=== PATIENT | male | born 1950 | race African-American/Black ===

== ENCOUNTER → 2019-04-22 | Outpatient (CLI) | payer OTHER | LOC: YHH 15:03 ==

== ENCOUNTER 2023-06-05 07:44 | Day surgery (SDC) | payer OTHER ==
[2023-06-03 09:45] VITALS: BMI 25.5
[2023-06-05 09:36] LABS: INR 1.17 (0.83-1.09); PROTHROMBIN TIME (PATIENT) 13.5 SEC (9.7-13.0)
[2023-06-05] MEDS ORDERED: FENTANYL CITRATE/PF 50 MCG/ML VIAL ONE ×2 (14:20)
[2023-06-05] MEDS ORDERED: MIDAZOLAM HCL 2 MG/2 ML SINGLE DOSE VIAL ONE (14:20)
[2023-06-05] MEDS ORDERED: SODIUM CHLORIDE 500 ML IV SCH (14:50)
[2023-06-05] MEDS ORDERED: FENTANYL CITRATE/PF 50 MCG/ML VIAL IVPUSH ONE ×2 (15:05→15:28)
[2023-06-05] MEDS ORDERED: MIDAZOLAM HCL 2 MG/2 ML SINGLE DOSE VIAL IVPUSH ONE ×2 (15:06→15:28)
[2023-06-05 16:22] VITALS: RESP 20
[2023-06-05 17:51] VITALS: BP 118/65; PULSE 101; TEMP 98
== END 2023-06-05 17:30 | disposition home or self-care (01) ==
LOC: JRADIR 07:44
PROVIDERS: ATTEND Student in an Organized Health Care Education/Training Program
PROC: 0QBS3ZX Excision of Coccyx, Percutaneous Approach, Diagnostic (ICD-10-PCS; principal; 2023-06-05)
DX: C16.9 Malignant neoplasm of stomach, unspecified (principal); C61 Malignant neoplasm of prostate; C79.51 Secondary malignant neoplasm of bone
CPT/HCPCS: 20225; 36415; 77012-TC; 85610; 88305-TC; 88311-TC

== ENCOUNTER 2023-07-09 10:42 | Inpatient (IN) | payer OTHER ==
[2023-07-09] MEDS ORDERED: ALBUTEROL SO4 2.5/IPRATROPIUM 0.5 INH SOL 3 ML VIAL.NEB. NEB ONE ×6 (11:12→20:27)
[2023-07-09 11:44] LABS: BASO % 0.5 % (0-2.0); EOS % 1.3 % (0-4.5); HEMATOCRIT 38.6 % (35.4-49); HEMOGLOBIN 12.3 GM/dL (11.7-16.9); LYMPH % 19.1 % (8-40); MCH 28.2 pg (25.7-33.7); MCHC 31.8 g/dl (32.0-35.9); MEAN CELL VOLUME 88.6 fl (80-96); MEAN PLT VOLUME 8.6 fl (7.5-11.1); MONO % 9.6 % (3.8-10.2); NEUT % 69.5 % (42.8-82.8); PLATELET COUNT 149 10^3/uL (134-434); RBC 4.36 M/mm3 (4.00-5.60); RDW 14.3 % (11.9-15.9); WHITE BLOOD COUNT 6.4 K/mm3 (4.0-10.0)
[2023-07-09 12:03] LABS: CALCIUM 9.1 mg/dL (8.5-10.1)
[2023-07-09 12:04] LABS: BLOOD UREA NITROGEN 16.5 mg/dL (7-18)
[2023-07-09 12:07] LABS: CREATININE 1.2 mg/dL (0.55-1.3)
[2023-07-09 12:09] LABS: BILIRUBIN,TOTAL 0.4 mg/dL (0.2-1); TOT PROT 7.9 g/dl (6.4-8.2)
[2023-07-09 12:28] LABS: VENOUS BASE EXCESS 6.5 mmol/L (-2-2); VENOUS O2 SATURATION 57.9 % (70-80); VENOUS PH 7.255 (7.310-7.410)
[2023-07-09 12:29] LABS: VENOUS PCO2 84.4 mmHg (38-52)
[2023-07-09] MEDS ORDERED: methylPREDNISolone NA SUCC 125 MG/2 ML VIAL IVPUSH ONE (13:26)
[2023-07-09] MEDS ORDERED: VANCOMYCIN 1,000 MG in DEXTROSE 5%-WATER - 250 ML IVPB ONE (13:27)
[2023-07-09] MEDS ORDERED: CEFEPIME HCL 2 GM VIAL (RESTRICTED TO ID) IVPB ONE (13:28)
[2023-07-09] MEDS ORDERED: FUROSEMIDE 40 MG/4 ML INJECTABLE VIAL IVPUSH ONE (13:41)
[2023-07-09] MEDS ORDERED: methylPREDNISolone NA SUCC 125 MG/2 ML VIAL ONE (13:53)
[2023-07-09] MEDS ORDERED: FUROSEMIDE 40 MG/4 ML INJECTABLE VIAL ONE (13:54)
[2023-07-09] MEDS ORDERED: CEFEPIME 2 GM/100 ML BAG IVPB ONE (13:54)
[2023-07-09] MEDS ORDERED: VANCOMYCIN 1 GRAM (PRE-DOCKED) 1,000 MG/250 ML BAG IVPB ONE (14:24)
[2023-07-09 15:22] LABS: N-TERMINAL BNP 118.2 pg/ml (5-125)
[2023-07-09] MEDS: ALBUTEROL SO4 2.5/IPRATROPIUM 0.5 INH SOL 3 ML VIAL.NEB. NEB SCH ×2 (17:19→20:30)
[2023-07-09 17:24] LABS: URINE APPEARANCE CLEAR; URINE BILIRUBIN NEGATIVE (NEGATIVE); URINE COLOR YELLOW; URINE GLUCOSE (UA) NEGATIVE (NEGATIVE); URINE KETONE NEGATIVE (NEGATIVE); URINE LEUK ESTERASE NEGATIVE (NEGATIVE); URINE NITRITE NEGATIVE (NEGATIVE); URINE PROTEIN NEGATIVE (NEGATIVE); URINE UROBILINOGEN 0.2 mg/dL (0.2-1.0)
[2023-07-09] MEDS: INSULIN SLIDING SCALE (NOVOLOG) 1 VIAL SQ SCH ×2 (17:41→22:13)
[2023-07-09] MEDS ORDERED: methylPREDNISolone NA SUCC 40 MG/1 ML VIAL ONE (18:05)
[2023-07-09] MEDS: methylPREDNISolone NA SUCC 40 MG/1 ML VIAL IVPUSH SCH (18:07)
[2023-07-09] MEDS ORDERED: ALBUTEROL SO4 HFA INHALER IH PRN (18:44)
[2023-07-09] MEDS ORDERED: PANTOPRAZOLE 20 MG TABLET PO PRN (18:44)
[2023-07-09 20:16] LABS: BF WBC & OTHER NUCLEATED CELLS 1282 /mm3
[2023-07-09] MEDS ORDERED: ACETAMINOPHEN 1000 MG/100 ML BAG IVPB PRN (20:40)
[2023-07-09] MEDS ORDERED: ATORVASTATIN CA 20 MG TABLET (FP) ONE (21:52)
[2023-07-09 21:57] LABS: BODY FLUID MACROPHAGES 17 %; BODY FLUID MONOCYTE 4 %
[2023-07-09] MEDS: BUDESONIDE/FORMETEROL FUMARATE 160/4.5 mcg INHALER IH SCH (22:13)
[2023-07-09] MEDS: MELATONIN 1 MG TABLET PO SCH (22:13)
[2023-07-09] MEDS: ATORVASTATIN CA 10 MG TABLET (FP) PO SCH (22:13)
[2023-07-10] MEDS: methylPREDNISolone NA SUCC 40 MG/1 ML VIAL IVPUSH SCH ×3 (02:20→17:18)
[2023-07-10] MEDS ORDERED: methylPREDNISolone NA SUCC 40 MG/1 ML VIAL ONE (02:52)
[2023-07-10] MEDS ORDERED: ACETAMINOPHEN INJECTION 100 ML IVPB ONE (07:23)
[2023-07-10] MEDS: INSULIN SLIDING SCALE (NOVOLOG) 1 VIAL SQ SCH ×4 (08:05→21:44)
[2023-07-10 08:19] LABS: HEMATOCRIT 39.2 % (35.4-49); HEMOGLOBIN 12.8 GM/dL (11.7-16.9); MCH 28.8 pg (25.7-33.7); MCHC 32.6 g/dl (32.0-35.9); MEAN CELL VOLUME 88.4 fl (80-96); MEAN PLT VOLUME 8.7 fl (7.5-11.1); PLATELET COUNT 147 10^3/uL (134-434); RBC 4.44 M/mm3 (4.00-5.60); WHITE BLOOD COUNT 8.6 K/mm3 (4.0-10.0)
[2023-07-10 08:43] LABS: BLOOD UREA NITROGEN 23.8 mg/dL (7-18); CALCIUM 8.9 mg/dL (8.5-10.1)
[2023-07-10 08:46] LABS: CREATININE 1.3 mg/dL (0.55-1.3); PHOSPHOROUS 4.6 mg/dL (2.5-4.9)
[2023-07-10] MEDS: ALBUTEROL SO4 2.5/IPRATROPIUM 0.5 INH SOL 3 ML VIAL.NEB. NEB SCH ×4 (08:46→20:05)
[2023-07-10] MEDS: BICTEGRAV/EMTRICIT/TENOFOV (BIKTARVY) 50-200-25 MG TABLET PO SCH (08:46)
[2023-07-10 08:48] LABS: BILIRUBIN,TOTAL 0.4 mg/dL (0.2-1)
[2023-07-10] MEDS: FUROSEMIDE 40 MG/4 ML INJECTABLE VIAL IVPUSH SCH (09:05)
[2023-07-10] MEDS: ENOXAPARIN NA (PORCINE) 40 MG/0.4 ML DISP.SYRIN SQ SCH (09:05)
[2023-07-10] MEDS: VARENICLINE TARTRATE 1 MG TAB PO SCH (09:05)
[2023-07-10] MEDS: BUDESONIDE/FORMETEROL FUMARATE 160/4.5 mcg INHALER IH SCH ×2 (09:06→21:46)
[2023-07-10 09:12] LABS: ANISOCYTOSIS 0; MACROCYTOSIS 0
[2023-07-10] MEDS ORDERED: INSULIN (NOVOLOG) ASPART 100 UNITS/ML 10ML VIAL ONE (21:11)
[2023-07-10] MEDS: MELATONIN 1 MG TABLET PO SCH (21:44)
[2023-07-10] MEDS: ATORVASTATIN CA 10 MG TABLET (FP) PO SCH (21:44)
[2023-07-11] MEDS: methylPREDNISolone NA SUCC 40 MG/1 ML VIAL IVPUSH SCH ×3 (01:56→17:51)
[2023-07-11] MEDS: INSULIN SLIDING SCALE (NOVOLOG) 1 VIAL SQ SCH ×4 (06:41→21:44)
[2023-07-11] MEDS: ALBUTEROL SO4 2.5/IPRATROPIUM 0.5 INH SOL 3 ML VIAL.NEB. NEB SCH ×4 (07:40→20:47)
[2023-07-11 08:53] LABS: HEMATOCRIT 36.2 % (35.4-49); HEMOGLOBIN 11.7 GM/dL (11.7-16.9); MCH 28.5 pg (25.7-33.7); MCHC 32.3 g/dl (32.0-35.9); MEAN CELL VOLUME 88.4 fl (80-96); MEAN PLT VOLUME 9.2 fl (7.5-11.1); PLATELET COUNT 141 10^3/uL (134-434); RDW 14.3 % (11.9-15.9); WHITE BLOOD COUNT 11.5 K/mm3 (4.0-10.0)
[2023-07-11 09:11] LABS: ANISOCYTOSIS 2+; MACROCYTOSIS 2+
[2023-07-11 09:26] LABS: POTASSIUM 4.5 mmol/L (3.5-5.1)
[2023-07-11] MEDS: FUROSEMIDE 40 MG/4 ML INJECTABLE VIAL IVPUSH SCH (09:31)
[2023-07-11] MEDS: ENOXAPARIN NA (PORCINE) 40 MG/0.4 ML DISP.SYRIN SQ SCH (09:31)
[2023-07-11] MEDS: BUDESONIDE/FORMETEROL FUMARATE 160/4.5 mcg INHALER IH SCH ×2 (09:32→21:59)
[2023-07-11] MEDS: VARENICLINE TARTRATE 1 MG TAB PO SCH (09:38)
[2023-07-11] MEDS: BICTEGRAV/EMTRICIT/TENOFOV (BIKTARVY) 50-200-25 MG TABLET PO SCH (09:39)
[2023-07-11 10:04] LABS: CALCIUM 8.9 mg/dL (8.5-10.1)
[2023-07-11 10:05] LABS: ALBUMIN 2.9 g/dl (3.4-5.0)
[2023-07-11 10:08] LABS: BILIRUBIN,TOTAL 0.3 mg/dL (0.2-1); CREATININE 1.7 mg/dL (0.55-1.3)
[2023-07-11 10:09] LABS: TOT PROT 7.3 g/dl (6.4-8.2)
[2023-07-11] MEDS ORDERED: INSULIN (NOVOLOG) ASPART 100 UNITS/ML 10ML VIAL ONE ×2 (10:33→21:20)
[2023-07-11] MEDS ORDERED: SODIUM CHLORIDE 1,000 ML IV SCH (11:15)
[2023-07-11] MEDS ORDERED: PANTOPRAZOLE 20 MG TABLET PO PRN (11:21)
[2023-07-11] MEDS ORDERED: PIPERACILLIN/TAZOBACTAM 4.5 GM VIAL IVPB ONE ×2 (11:56→17:14)
[2023-07-11] MEDS ORDERED: PIPERACILLIN/TAZOB 4.5 GM 4.5 GM in DEXTROSE 5%-WATER 100 ML IVPB SCH (12:00)
[2023-07-11 13:19] LABS: ALLENS TEST POSITIVE; ARTERIAL BLD GAS O2 SATURATION 95.9 % (95-98); ARTERIAL BLOOD GAS BASE EXCESS 7.2 mmol/L (-2-2); ARTERIAL BLOOD GAS PO2 88.6 mmHg (80-100); ARTERIAL BLOOD GAS pH 7.336 (7.350-7.450)
[2023-07-11 14:44] VITALS: BMI 24.0
[2023-07-11 15:21] LABS: BODY FLUID ALBUMIN 2.7 g/dL (Not Estab.)
[2023-07-11] MEDS: PIPERACILLIN/TAZOB 4.5 GM 4.5 GM in DEXTROSE 5%-WATER 100 ML IVPB SCH (17:52)
[2023-07-11] MEDS: ATORVASTATIN CA 10 MG TABLET (FP) PO SCH (21:41)
[2023-07-11] MEDS: MELATONIN 1 MG TABLET PO SCH (21:41)
[2023-07-12] MEDS ORDERED: PIPERACILLIN/TAZOBACTAM 4.5 GM VIAL IVPB ONE (01:53)
[2023-07-12] MEDS: PIPERACILLIN/TAZOB 4.5 GM 4.5 GM in DEXTROSE 5%-WATER 100 ML IVPB SCH ×3 (02:00→17:01)
[2023-07-12] MEDS: methylPREDNISolone NA SUCC 40 MG/1 ML VIAL IVPUSH SCH ×2 (02:00→09:10)
[2023-07-12] MEDS: INSULIN SLIDING SCALE (NOVOLOG) 1 VIAL SQ SCH ×4 (06:08→21:22)
[2023-07-12] MEDS: ALBUTEROL SO4 2.5/IPRATROPIUM 0.5 INH SOL 3 ML VIAL.NEB. NEB SCH ×4 (07:30→19:53)
[2023-07-12] MEDS: BICTEGRAV/EMTRICIT/TENOFOV (BIKTARVY) 50-200-25 MG TABLET PO SCH (08:29)
[2023-07-12] MEDS: BUDESONIDE/FORMETEROL FUMARATE 160/4.5 mcg INHALER IH SCH ×2 (09:08→21:21)
[2023-07-12] MEDS: ENOXAPARIN NA (PORCINE) 40 MG/0.4 ML DISP.SYRIN SQ SCH (09:10)
[2023-07-12] MEDS: VARENICLINE TARTRATE 1 MG TAB PO SCH (09:12)
[2023-07-12 09:18] LABS: HEMATOCRIT 36.4 % (35.4-49); MCH 28.9 pg (25.7-33.7); MEAN CELL VOLUME 87.5 fl (80-96); MEAN PLT VOLUME 8.9 fl (7.5-11.1); PLATELET COUNT 134 10^3/uL (134-434); RBC 4.16 M/mm3 (4.00-5.60); RDW 14.2 % (11.9-15.9)
[2023-07-12 09:39] LABS: POTASSIUM 4.3 mmol/L (3.5-5.1)
[2023-07-12 09:42] LABS: CALCIUM 8.5 mg/dL (8.5-10.1)
[2023-07-12 09:44] LABS: BLOOD UREA NITROGEN 32.6 mg/dL (7-18); CREATININE 1.6 mg/dL (0.55-1.3); MAGNESIUM 2.4 mg/dL (1.8-2.4)
[2023-07-12 09:47] LABS: PHOSPHOROUS 3.7 mg/dL (2.5-4.9)
[2023-07-12 09:56] LABS: ANISOCYTOSIS 2+; MACROCYTOSIS 0; TARGET CELLS 1+
[2023-07-12] MEDS ORDERED: INSULIN (NOVOLOG) ASPART 100 UNITS/ML 10ML VIAL ONE (10:29)
[2023-07-12] MEDS ORDERED: BISACODYL 5 MG TABLET.DR (FP) PO ONE (16:38)
[2023-07-12] MEDS ORDERED: SODIUM CHLORIDE 1,000 ML IV SCH (16:45)
[2023-07-12] MEDS: POLYETHYLENE GLYCOL (HEALTHYLAX) 3350 17 GM PACKET PO SCH (17:00)
[2023-07-12] MEDS: ATORVASTATIN CA 10 MG TABLET (FP) PO SCH (21:18)
[2023-07-12] MEDS: MELATONIN 1 MG TABLET PO SCH (21:18)
[2023-07-12] MEDS ORDERED: ACETAMINOPHEN 325 MG TABLET (FP) PO PRN ×2 (21:52→21:53)
[2023-07-13] MEDS: PIPERACILLIN/TAZOB 4.5 GM 4.5 GM in DEXTROSE 5%-WATER 100 ML IVPB SCH ×3 (01:37→17:19)
[2023-07-13] MEDS: INSULIN SLIDING SCALE (NOVOLOG) 1 VIAL SQ SCH ×4 (06:03→21:29)
[2023-07-13] MEDS: ALBUTEROL SO4 2.5/IPRATROPIUM 0.5 INH SOL 3 ML VIAL.NEB. NEB SCH ×4 (08:15→19:55)
[2023-07-13] MEDS ORDERED: morphine SULFATE IMMEDIATE RELEASE 30 MG TAB PO PRN (09:31)
[2023-07-13] MEDS ORDERED: DOCUSATE SODIUM 100 MG CAPSULE (FP) PO PRN (10:32)
[2023-07-13] MEDS: BUDESONIDE/FORMETEROL FUMARATE 160/4.5 mcg INHALER IH SCH ×2 (10:45→21:28)
[2023-07-13] MEDS: VARENICLINE TARTRATE 1 MG TAB PO SCH (10:45)
[2023-07-13] MEDS: ENOXAPARIN NA (PORCINE) 40 MG/0.4 ML DISP.SYRIN SQ SCH (10:45)
[2023-07-13] MEDS: BICTEGRAV/EMTRICIT/TENOFOV (BIKTARVY) 50-200-25 MG TABLET PO SCH (10:46)
[2023-07-13] MEDS: methylPREDNISolone NA SUCC 40 MG/1 ML VIAL IVPUSH SCH (10:55)
[2023-07-13] MEDS: POLYETHYLENE GLYCOL (HEALTHYLAX) 3350 17 GM PACKET PO SCH (10:56)
[2023-07-13] MEDS ORDERED: INSULIN (NOVOLOG) ASPART 100 UNITS/ML 10ML VIAL ONE ×2 (11:27→21:23)
[2023-07-13] MEDS: MELATONIN 1 MG TABLET PO SCH (21:26)
[2023-07-13] MEDS: ATORVASTATIN CA 10 MG TABLET (FP) PO SCH (21:26)
[2023-07-14] MEDS: PIPERACILLIN/TAZOB 4.5 GM 4.5 GM in DEXTROSE 5%-WATER 100 ML IVPB SCH ×3 (02:39→17:05)
[2023-07-14] MEDS: INSULIN SLIDING SCALE (NOVOLOG) 1 VIAL SQ SCH ×3 (06:06→16:17)
[2023-07-14] MEDS: BICTEGRAV/EMTRICIT/TENOFOV (BIKTARVY) 50-200-25 MG TABLET PO SCH (08:32)
[2023-07-14] MEDS: ALBUTEROL SO4 2.5/IPRATROPIUM 0.5 INH SOL 3 ML VIAL.NEB. NEB SCH (08:56)
[2023-07-14 09:24] LABS: HEMATOCRIT 36.1 % (35.4-49); HEMOGLOBIN 12.3 GM/dL (11.7-16.9); MCH 29.6 pg (25.7-33.7); MCHC 33.9 g/dl (32.0-35.9); MEAN CELL VOLUME 87.3 fl (80-96); MEAN PLT VOLUME 8.9 fl (7.5-11.1); PLATELET COUNT 119 10^3/uL (134-434); RBC 4.14 M/mm3 (4.00-5.60); RDW 14.7 % (11.9-15.9); WHITE BLOOD COUNT 5.7 K/mm3 (4.0-10.0)
[2023-07-14 09:41] LABS: POTASSIUM 4.2 mmol/L (3.5-5.1)
[2023-07-14 09:43] LABS: CALCIUM 8.3 mg/dL (8.5-10.1)
[2023-07-14 09:44] LABS: ALBUMIN 2.7 g/dl (3.4-5.0); BLOOD UREA NITROGEN 19.3 mg/dL (7-18)
[2023-07-14 09:46] LABS: CREATININE 1.3 mg/dL (0.55-1.3)
[2023-07-14 09:49] LABS: BILIRUBIN,TOTAL 0.3 mg/dL (0.2-1); TOT PROT 6.7 g/dl (6.4-8.2)
[2023-07-14] MEDS: VARENICLINE TARTRATE 1 MG TAB PO SCH (09:58)
[2023-07-14] MEDS: POLYETHYLENE GLYCOL (HEALTHYLAX) 3350 17 GM PACKET PO SCH (09:58)
[2023-07-14] MEDS: ENOXAPARIN NA (PORCINE) 40 MG/0.4 ML DISP.SYRIN SQ SCH (09:59)
[2023-07-14] MEDS: methylPREDNISolone NA SUCC 40 MG/1 ML VIAL IVPUSH SCH (09:59)
[2023-07-14] MEDS: BUDESONIDE/FORMETEROL FUMARATE 160/4.5 mcg INHALER IH SCH (10:01)
[2023-07-14] MEDS ORDERED: INSULIN (NOVOLOG) ASPART 100 UNITS/ML 10ML VIAL ONE ×2 (10:49→16:15)
[2023-07-14] MEDS ORDERED: FUROSEMIDE 40 MG/4 ML INJECTABLE VIAL IVPUSH ONE (11:45)
[2023-07-14 14:02] VITALS: TEMP 97.9
[2023-07-14 17:18] VITALS: BP 122/68; PULSE 112; RESP 20
== END 2023-07-14 17:55 | disposition home or self-care (01) | DRG 180 ==
LOC: JER 10:42 → JERBED 13:45 → J6S 07-10 12:16
PROVIDERS: ADMIT Internal Medicine; ATTEND Internal Medicine
PROC: 0W993ZZ Drainage of Right Pleural Cavity, Percutaneous Approach (ICD-10-PCS; principal; 2023-07-09)
DX: C34.91 Malignant neoplasm of unspecified part of right bronchus or lung (principal); J18.9 Pneumonia, unspecified organism; J96.21 Acute and chronic respiratory failure with hypoxia; J96.22 Acute and chronic respiratory failure with hypercapnia; C79.51 Secondary malignant neoplasm of bone; J44.1 Chronic obstructive pulmonary disease with (acute) exacerbation; J90 Pleural effusion, not elsewhere classified; J98.11 Atelectasis; B20 Human immunodeficiency virus [HIV] disease; N17.9 Acute kidney failure, unspecified; D72.829 Elevated white blood cell count, unspecified; E11.9 Type 2 diabetes mellitus without complications; E11.22 Type 2 diabetes mellitus with diabetic chronic kidney disease; N18.9 Chronic kidney disease, unspecified; K59.00 Constipation, unspecified; E78.5 Hyperlipidemia, unspecified; F17.210 Nicotine dependence, cigarettes, uncomplicated; K21.9 Gastro-esophageal reflux disease without esophagitis; J43.9 Emphysema, unspecified; E86.0 Dehydration; Z85.09 Personal history of malignant neoplasm of other digestive organs; Z85.46 Personal history of malignant neoplasm of prostate; Z79.84 Long term (current) use of oral hypoglycemic drugs
CPT/HCPCS: 0241U-QW; 36415; 36600; 71045-TC-FY; 71275-TC; 76942; 80048; 80053; 81003; 82042; 82150; 82465; 82803; 82945; 82962; 83615; 83735; 83880; 84100; 84157; 84443; 84478; 84484; 85025; 85027; 87070; 87075; 87102; 87116; 87205; 87206; 87210; 87899; 88108; 88305-TC; 93005; 93010; 93306-TC; 94640; 94660; 94761; 97116-GP; 97161-GP; 99285-25; Q9967

== ENCOUNTER 2023-07-23 04:21 | Inpatient (IN) | payer OTHER ==
[2023-07-21 13:00] VITALS: BMI 25.0
[2023-07-23] MEDS ORDERED: FENTANYL CITRATE/PF 50 MCG/ML VIAL ONE (11:25)
[2023-07-23] MEDS ORDERED: MIDAZOLAM HCL 2 MG/2 ML SINGLE DOSE VIAL ONE (11:25)
[2023-07-23] MEDS ORDERED: ceFAZolin SODIUM 1 GM VIAL ONE (12:10)
[2023-07-23] MEDS ORDERED: ONDANSETRON 4 MG/2 ML VIAL ONE (12:11)
[2023-07-23] MEDS ORDERED: BUPIVACAINE HCL/PF 0.25% (2.5MG/ML) 10 ML VIAL IJ ONE (12:16)
[2023-07-23] MEDS ORDERED: ceFAZolin SODIUM 1 GM VIAL IVPB ONE (12:16)
[2023-07-23] MEDS ORDERED: KETOROLAC TROMETHAMINE 30 MG/1 ML VIAL ONE (12:27)
[2023-07-23] MEDS ORDERED: METOPROLOL TARTRATE 5 MG/5 ML VIAL ONE ×4 (12:33→12:59)
[2023-07-23] MEDS ORDERED: LABETALOL HCL 20 MG/4 ML VIAL ONE (12:45)
[2023-07-23] MEDS ORDERED: ADENOSINE 6 MG/2 ML VIAL IVPUSH ONE (13:03)
[2023-07-23] MEDS ORDERED: ONDANSETRON 4 MG/2 ML VIAL IVPUSH PRN ×2 (13:26→13:49)
[2023-07-23] MEDS ORDERED: ALBUTEROL SO4 HFA INHALER IH PRN ×2 (13:28→13:49)
[2023-07-23] MEDS ORDERED: PANTOPRAZOLE 20 MG TABLET PO PRN ×2 (13:28→13:49)
[2023-07-23] MEDS ORDERED: BLOOD GLUCOSE METER MC SCH (13:30)
[2023-07-23] MEDS ORDERED: BLOOD SUGAR DIAGNOSTIC MC SCH (13:30)
[2023-07-23] MEDS ORDERED: [UNRECOGNIZED DRUG - OTHER] MC SCH (13:30)
[2023-07-23] MEDS ORDERED: LACTATED RINGERS SOLUTION 1,000 ML IV SCH ×2 (13:30→13:49)
[2023-07-23] MEDS ORDERED: ALCOHOL ANTISEPTIC PADS TP SCH (13:30)
[2023-07-23] MEDS ORDERED: morphine CARPU-JECT 2 MG/1 ML DISP.SYRIN IVPUSH PRN (13:49)
[2023-07-23] MEDS ORDERED: ACETAMINOPHEN 325 MG TABLET (FP) PO PRN (13:49)
[2023-07-23] MEDS ORDERED: ALBUTEROL SO4 0.083% IH SOL 2.5 MG/3 ML VIAL.NEB. NEB SCH (16:00)
[2023-07-23] MEDS ORDERED: INSULIN SLIDING SCALE (NOVOLOG) 1 VIAL SQ SCH (16:30)
[2023-07-23] MEDS: ALBUTEROL SO4 0.083% IH SOL 2.5 MG/3 ML VIAL.NEB. NEB SCH ×2 (17:07→21:10)
[2023-07-23] MEDS ORDERED: INSULIN (NOVOLOG) ASPART 100 UNITS/ML 10ML VIAL ONE ×2 (17:40→22:12)
[2023-07-23] MEDS: INSULIN SLIDING SCALE (NOVOLOG) 1 VIAL SQ SCH ×2 (17:43→22:15)
[2023-07-23] MEDS ORDERED: ATORVASTATIN CA 10 MG TABLET (FP) PO SCH (22:00)
[2023-07-23] MEDS: ATORVASTATIN CA 10 MG TABLET (FP) PO SCH (22:15)
[2023-07-24] MEDS: ALBUTEROL SO4 0.083% IH SOL 2.5 MG/3 ML VIAL.NEB. NEB SCH ×6 (00:36→20:10)
[2023-07-24] MEDS ORDERED: CEFTRIAXONE 1 GM in DEXTROSE 5%-WATER - 50 ML IVPB SCH (06:45)
[2023-07-24] MEDS ORDERED: AZITHROMYCIN IVPB 500 MG/250 ML BAG IVPB ONE (06:45)
[2023-07-24 07:39] LABS: HEMATOCRIT 36.5 % (35.4-49); HEMOGLOBIN 11.8 GM/dL (11.7-16.9); MCH 28.9 pg (25.7-33.7); MCHC 32.4 g/dl (32.0-35.9); MEAN CELL VOLUME 89.1 fl (80-96); MEAN PLT VOLUME 8.6 fl (7.5-11.1); PLATELET COUNT 111 10^3/uL (134-434); WHITE BLOOD COUNT 6.5 K/mm3 (4.0-10.0)
[2023-07-24 08:14] LABS: POTASSIUM 4.3 mmol/L (3.5-5.1)
[2023-07-24] MEDS: INSULIN SLIDING SCALE (NOVOLOG) 1 VIAL SQ SCH ×4 (08:15→21:06)
[2023-07-24 08:20] LABS: CALCIUM 8.4 mg/dL (8.5-10.1)
[2023-07-24 08:24] LABS: CREATININE 1.1 mg/dL (0.55-1.3)
[2023-07-24] MEDS ORDERED: FUROSEMIDE 40 MG/4 ML INJECTABLE VIAL IVPUSH ONE (08:30)
[2023-07-24] MEDS ORDERED: TAMSULOSIN HCL 0.4 MG CAP PO SCH (08:30)
[2023-07-24] MEDS: TAMSULOSIN HCL 0.4 MG CAP PO SCH (08:35)
[2023-07-24] MEDS: FAMOTIDINE 20 MG TABLET PO SCH (09:48)
[2023-07-24] MEDS: metoPROLOL SUCCINATE 25 MG TAB.SR.24H (FP) PO SCH (09:48)
[2023-07-24] MEDS: BICTEGRAV/EMTRICIT/TENOFOV (BIKTARVY) 50-200-25 MG TABLET PO SCH (09:48)
[2023-07-24] MEDS: VARENICLINE TARTRATE 1 MG TAB PO SCH (09:49)
[2023-07-24] MEDS: FLUTICASONE/UMECLIDIN/VILANTER(200-62.5-25 TRELEGY ELLIPTA) INAHLER IH SCH (09:51)
[2023-07-24] MEDS ORDERED: FLUTICASONE/UMECLIDIN/VILANTER(200-62.5-25 TRELEGY ELLIPTA) INAHLER IH SCH (10:00)
[2023-07-24] MEDS ORDERED: BICTEGRAV/EMTRICIT/TENOFOV (BIKTARVY) 50-200-25 MG TABLET PO SCH (10:00)
[2023-07-24] MEDS ORDERED: FUROSEMIDE 20 MG TABLET (FP) PO SCH (10:00)
[2023-07-24] MEDS ORDERED: VARENICLINE TARTRATE 1 MG TAB PO SCH (10:00)
[2023-07-24] MEDS ORDERED: FLUTICASONE/UMECLIDIN/VILANTER(100-62.5-25 TRELEGY ELLIPTA) INAHLER IH SCH ×2 (10:00)
[2023-07-24] MEDS ORDERED: PATIENT'S OWN MEDICATION (NON-FORMULARY) (Famotidine 40 MG Tablet) PO SCH (10:00)
[2023-07-24] MEDS: guaiFENesin 200 MG/10 ML 10 ML UNIT-DOSE CUPS PO SCH ×2 (11:50→18:10)
[2023-07-24] MEDS ORDERED: VANCOMYCIN/WATER FOR INJ (PEG) 1,000 MG/200 ML BAG IVPB ONE (12:00)
[2023-07-24 13:03] LABS: PH,URINE 5.5 (5.0-8.0); URINE APPEARANCE CLEAR; URINE BILIRUBIN NEGATIVE (NEGATIVE); URINE COLOR YELLOW; URINE GLUCOSE (UA) NEGATIVE (NEGATIVE); URINE KETONE NEGATIVE (NEGATIVE); URINE LEUK ESTERASE NEGATIVE (NEGATIVE); URINE NITRITE NEGATIVE (NEGATIVE); URINE PROTEIN NEGATIVE (NEGATIVE); URINE UROBILINOGEN 0.2 mg/dL (0.2-1.0)
[2023-07-24] MEDS ORDERED: INSULIN (NOVOLOG) ASPART 100 UNITS/ML 10ML VIAL ONE (21:03)
[2023-07-24] MEDS: ATORVASTATIN CA 10 MG TABLET (FP) PO SCH (21:05)
[2023-07-24] MEDS ORDERED: VANCOMYCIN/WATER FOR INJ (PEG) 1,000 MG/200 ML BAG IVPB SCH ×2 (22:00)
[2023-07-25] MEDS: ALBUTEROL SO4 0.083% IH SOL 2.5 MG/3 ML VIAL.NEB. NEB SCH ×7 (00:05→23:57)
[2023-07-25] MEDS: guaiFENesin 200 MG/10 ML 10 ML UNIT-DOSE CUPS PO SCH ×4 (00:52→17:08)
[2023-07-25] MEDS: INSULIN SLIDING SCALE (NOVOLOG) 1 VIAL SQ SCH ×4 (06:16→21:21)
[2023-07-25] MEDS ORDERED: INSULIN (NOVOLOG) ASPART 100 UNITS/ML 10ML VIAL ONE (06:22)
[2023-07-25] MEDS: TAMSULOSIN HCL 0.4 MG CAP PO SCH (09:25)
[2023-07-25] MEDS: BICTEGRAV/EMTRICIT/TENOFOV (BIKTARVY) 50-200-25 MG TABLET PO SCH (09:32)
[2023-07-25] MEDS: VARENICLINE TARTRATE 1 MG TAB PO SCH (09:32)
[2023-07-25] MEDS: FLUTICASONE/UMECLIDIN/VILANTER(200-62.5-25 TRELEGY ELLIPTA) INAHLER IH SCH (09:32)
[2023-07-25] MEDS: FAMOTIDINE 20 MG TABLET PO SCH (09:32)
[2023-07-25] MEDS: metoPROLOL SUCCINATE 25 MG TAB.SR.24H (FP) PO SCH (09:36)
[2023-07-25 10:10] LABS: HEMATOCRIT 35.4 % (35.4-49); HEMOGLOBIN 11.7 GM/dL (11.7-16.9); MCH 28.7 pg (25.7-33.7); MCHC 32.9 g/dl (32.0-35.9); MEAN CELL VOLUME 87.4 fl (80-96); MEAN PLT VOLUME 8.5 fl (7.5-11.1); PLATELET COUNT 107 10^3/uL (134-434); RBC 4.06 M/mm3 (4.00-5.60); RDW 15.1 % (11.9-15.9); WHITE BLOOD COUNT 5.8 K/mm3 (4.0-10.0)
[2023-07-25 10:41] LABS: POTASSIUM 4.2 mmol/L (3.5-5.1)
[2023-07-25 10:42] LABS: CALCIUM 8.8 mg/dL (8.5-10.1)
[2023-07-25 10:43] LABS: BLOOD UREA NITROGEN 15.3 mg/dL (7-18)
[2023-07-25 10:46] LABS: CREATININE 1.1 mg/dL (0.55-1.3)
[2023-07-25] MEDS: ATORVASTATIN CA 10 MG TABLET (FP) PO SCH (21:21)
[2023-07-25] MEDS ORDERED: metoPROLOL SUCCINATE 25 MG TAB.SR.24H (FP) PO SCH (22:00)
[2023-07-26] MEDS: ALBUTEROL SO4 0.083% IH SOL 2.5 MG/3 ML VIAL.NEB. NEB SCH ×4 (04:28→15:10)
[2023-07-26] MEDS: guaiFENesin 200 MG/10 ML 10 ML UNIT-DOSE CUPS PO SCH ×4 (06:53→18:09)
[2023-07-26] MEDS: INSULIN SLIDING SCALE (NOVOLOG) 1 VIAL SQ SCH ×4 (07:26→21:14)
[2023-07-26] MEDS: FAMOTIDINE 20 MG TABLET PO SCH (09:56)
[2023-07-26] MEDS: APIXABAN 5 MG TABLET PO SCH ×2 (09:56→21:10)
[2023-07-26] MEDS: TAMSULOSIN HCL 0.4 MG CAP PO SCH (09:56)
[2023-07-26] MEDS: BICTEGRAV/EMTRICIT/TENOFOV (BIKTARVY) 50-200-25 MG TABLET PO SCH (09:57)
[2023-07-26] MEDS: VARENICLINE TARTRATE 1 MG TAB PO SCH (09:57)
[2023-07-26] MEDS: FLUTICASONE/UMECLIDIN/VILANTER(200-62.5-25 TRELEGY ELLIPTA) INAHLER IH SCH (09:58)
[2023-07-26] MEDS: ATORVASTATIN CA 10 MG TABLET (FP) PO SCH (21:09)
[2023-07-27] MEDS: guaiFENesin 200 MG/10 ML 10 ML UNIT-DOSE CUPS PO SCH ×3 (00:25→11:33)
[2023-07-27] MEDS: INSULIN SLIDING SCALE (NOVOLOG) 1 VIAL SQ SCH ×2 (06:08→11:32)
[2023-07-27] MEDS: ALBUTEROL SO4 0.083% IH SOL 2.5 MG/3 ML VIAL.NEB. NEB SCH ×4 (07:10→11:43)
[2023-07-27 07:55] LABS: HEMATOCRIT 35.1 % (35.4-49); HEMOGLOBIN 11.5 GM/dL (11.7-16.9); MCHC 32.8 g/dl (32.0-35.9); MEAN CELL VOLUME 88.5 fl (80-96); PLATELET COUNT 102 10^3/uL (134-434); RBC 3.96 M/mm3 (4.00-5.60); RDW 15.1 % (11.9-15.9); WHITE BLOOD COUNT 4.8 K/mm3 (4.0-10.0)
[2023-07-27 08:23] LABS: CALCIUM 8.5 mg/dL (8.5-10.1)
[2023-07-27 08:24] LABS: BLOOD UREA NITROGEN 19.5 mg/dL (7-18)
[2023-07-27 08:27] LABS: CREATININE 1.1 mg/dL (0.55-1.3)
[2023-07-27 10:03] VITALS: BP 130/77; PULSE 97; RESP 20; TEMP 98.5
[2023-07-27] MEDS: TAMSULOSIN HCL 0.4 MG CAP PO SCH (10:03)
[2023-07-27] MEDS: APIXABAN 5 MG TABLET PO SCH (10:03)
[2023-07-27] MEDS: BICTEGRAV/EMTRICIT/TENOFOV (BIKTARVY) 50-200-25 MG TABLET PO SCH (10:03)
[2023-07-27] MEDS: VARENICLINE TARTRATE 1 MG TAB PO SCH (10:03)
[2023-07-27] MEDS: FAMOTIDINE 20 MG TABLET PO SCH (10:03)
[2023-07-27] MEDS: FLUTICASONE/UMECLIDIN/VILANTER(200-62.5-25 TRELEGY ELLIPTA) INAHLER IH SCH (10:04)
[2023-07-27] MEDS ORDERED: FUROSEMIDE 20 MG TABLET (FP) PO PRN (10:29)
== END 2023-07-27 12:58 | disposition home or self-care (01) | DRG 309 ==
LOC: JASUSAT 04:21 → SUATTDRO 04:21 → J4W 15:04 → JASUSAT 15:05 → J4W 15:05 → UNDOADMIN 07-24 10:58 → JERBED 07-24 15:11 → JASUSAT 07-24 15:11 → J4W 07-24 16:21
PROVIDERS: ADMIT Internal Medicine; ATTEND Internal Medicine
PROC: 0JH63XZ Insertion of Tunneled Vascular Access Device into Chest Subcutaneous Tissue and Fascia, Percutaneous Approach (ICD-10-PCS; principal; 2023-07-24)
PROC: 05H533Z Insertion of Infusion Device into Right Subclavian Vein, Percutaneous Approach (ICD-10-PCS; 2023-07-24)
PROC: B516ZZA Fluoroscopy of Right Subclavian Vein, Guidance (ICD-10-PCS; 2023-07-24)
DX: I47.19 Other supraventricular tachycardia (principal); B20 Human immunodeficiency virus [HIV] disease; C34.90 Malignant neoplasm of unspecified part of unspecified bronchus or lung; C79.51 Secondary malignant neoplasm of bone; J44.9 Chronic obstructive pulmonary disease, unspecified; I48.0 Paroxysmal atrial fibrillation; E78.5 Hyperlipidemia, unspecified; E11.9 Type 2 diabetes mellitus without complications; K21.9 Gastro-esophageal reflux disease without esophagitis; Z85.46 Personal history of malignant neoplasm of prostate; Z85.00 Personal history of malignant neoplasm of unspecified digestive organ
CPT/HCPCS: 0241U-QW; 36415; 71045-TC-FY; 76000-TC-FY; 80048; 81003; 82962; 84439; 84443; 85027; 87040; 87086; 93005; 93010; 94640; 94760; C1788; J1644

== ENCOUNTER 2023-07-29 13:51 | Inpatient (IN) | payer OTHER ==
[2023-07-29 14:43] VITALS: BMI 25.0
[2023-07-29] MEDS ORDERED: ALBUTEROL SO4 2.5/IPRATROPIUM 0.5 INH SOL 3 ML VIAL.NEB. NEB ONE ×2 (15:10→15:55)
[2023-07-29 15:58] LABS: BASO % 0.5 % (0-2.0); EOS % 0.1 % (0-4.5); HEMATOCRIT 32.9 % (35.4-49); LYMPH % 7.3 % (8-40); MCH 29.1 pg (25.7-33.7); MCHC 33.4 g/dl (32.0-35.9); MEAN CELL VOLUME 87.3 fl (80-96); NEUT % 90.1 % (42.8-82.8); PLATELET COUNT 107 10^3/uL (134-434); RBC 3.77 M/mm3 (4.00-5.60); RDW 14.9 % (11.9-15.9)
[2023-07-29 16:27] LABS: POTASSIUM 4.5 mmol/L (3.5-5.1)
[2023-07-29 16:29] LABS: CALCIUM 8.3 mg/dL (8.5-10.1)
[2023-07-29 16:30] LABS: ALBUMIN 2.6 g/dl (3.4-5.0); BLOOD UREA NITROGEN 21.1 mg/dL (7-18)
[2023-07-29 16:33] LABS: CREATININE 1.1 mg/dL (0.55-1.3)
[2023-07-29 16:35] LABS: TOT PROT 6.4 g/dl (6.4-8.2)
[2023-07-29 16:36] LABS: BILIRUBIN,TOTAL 0.5 mg/dL (0.2-1)
[2023-07-29] MEDS ORDERED: METOPROLOL TARTRATE 5 MG/5 ML VIAL IVPUSH ONE (19:47)
[2023-07-29] MEDS ORDERED: ADENOSINE 6 MG/2 ML VIAL IVPUSH ONE ×3 (19:53→19:59)
[2023-07-29] MEDS: INSULIN SLIDING SCALE (NOVOLOG) 1 VIAL SQ SCH (22:28)
[2023-07-30] MEDS: dilTIAZem HCL 30 MG TABLET PO SCH ×5 (00:05→23:45)
[2023-07-30] MEDS ORDERED: FUROSEMIDE 20 MG TABLET (FP) PO PRN (02:07)
[2023-07-30] MEDS ORDERED: ALBUTEROL SO4 HFA INHALER IH PRN (02:07)
[2023-07-30] MEDS ORDERED: PATIENT'S OWN MEDICATION (NON-FORMULARY) (Omeprazole 20 MG Capsule.Dr) PO PRN (02:07)
[2023-07-30] MEDS: INSULIN SLIDING SCALE (NOVOLOG) 1 VIAL SQ SCH ×3 (06:07→17:27)
[2023-07-30 06:59] LABS: HEMATOCRIT 35.3 % (35.4-49); HEMOGLOBIN 11.5 GM/dL (11.7-16.9); MCH 29.2 pg (25.7-33.7); MCHC 32.6 g/dl (32.0-35.9); MEAN CELL VOLUME 89.4 fl (80-96); MEAN PLT VOLUME 8.6 fl (7.5-11.1); PLATELET COUNT 106 10^3/uL (134-434); RBC 3.95 M/mm3 (4.00-5.60); RDW 15.3 % (11.9-15.9); WHITE BLOOD COUNT 5.3 K/mm3 (4.0-10.0)
[2023-07-30 07:22] LABS: POTASSIUM 5.5 mmol/L (3.5-5.1)
[2023-07-30 07:28] LABS: ALBUMIN 2.7 g/dl (3.4-5.0)
[2023-07-30 07:29] LABS: MAGNESIUM 2.1 mg/dL (1.8-2.4)
[2023-07-30] MEDS: ALBUTEROL SO4 2.5/IPRATROPIUM 0.5 INH SOL 3 ML VIAL.NEB. NEB SCH ×4 (07:30→20:20)
[2023-07-30 07:31] LABS: CREATININE 1.2 mg/dL (0.55-1.3)
[2023-07-30 07:32] LABS: PHOSPHOROUS 4.1 mg/dL (2.5-4.9)
[2023-07-30 07:33] LABS: BILIRUBIN,TOTAL 0.4 mg/dL (0.2-1); TOT PROT 6.5 g/dl (6.4-8.2)
[2023-07-30] MEDS: VARENICLINE TARTRATE 1 MG TAB PO SCH (09:56)
[2023-07-30] MEDS: BUDESONIDE/FORMETEROL FUMARATE 160/4.5 mcg INHALER IH SCH ×2 (09:56→22:17)
[2023-07-30] MEDS: BICTEGRAV/EMTRICIT/TENOFOV (BIKTARVY) 50-200-25 MG TABLET PO SCH (09:56)
[2023-07-30] MEDS: TAMSULOSIN HCL 0.4 MG CAP PO SCH (09:57)
[2023-07-30] MEDS: APIXABAN 5 MG TABLET PO SCH ×2 (09:57→22:16)
[2023-07-30] MEDS ORDERED: NUT TX GLUC INTOLER LAC FR SOY PO SCH (10:00)
[2023-07-30] MEDS ORDERED: [UNRECOGNIZED DRUG - OTHER] PO SCH (10:00)
[2023-07-30] MEDS ORDERED: methylPREDNISolone NA SUCC 40 MG/1 ML VIAL IVPUSH SCH (10:00)
[2023-07-30] MEDS ORDERED: FUROSEMIDE 40 MG/4 ML INJECTABLE VIAL IVPUSH ONE ×2 (11:30→15:15)
[2023-07-30] MEDS: SODIUM ZIRCONIUM CYCLOSILICATE (LOKELMA) 5 GM PACKET PO SCH (19:43)
[2023-07-30] MEDS: ATORVASTATIN CA 10 MG TABLET (FP) PO SCH (22:16)
[2023-07-31] MEDS: dilTIAZem HCL 30 MG TABLET PO SCH (06:25)
[2023-07-31] MEDS: INSULIN SLIDING SCALE (NOVOLOG) 1 VIAL SQ SCH ×3 (06:29→17:05)
[2023-07-31] MEDS: ALBUTEROL SO4 2.5/IPRATROPIUM 0.5 INH SOL 3 ML VIAL.NEB. NEB SCH ×4 (07:10→19:50)
[2023-07-31 08:15] LABS: HEMATOCRIT 35.2 % (35.4-49); HEMOGLOBIN 11.7 GM/dL (11.7-16.9); MCH 29.4 pg (25.7-33.7); MCHC 33.3 g/dl (32.0-35.9); MEAN CELL VOLUME 88.4 fl (80-96); MEAN PLT VOLUME 8.9 fl (7.5-11.1); PLATELET COUNT 124 10^3/uL (134-434); RBC 3.98 M/mm3 (4.00-5.60); RDW 14.8 % (11.9-15.9); WHITE BLOOD COUNT 6.5 K/mm3 (4.0-10.0)
[2023-07-31 08:27] LABS: POTASSIUM 4.5 mmol/L (3.5-5.1)
[2023-07-31 08:35] LABS: CALCIUM 8.5 mg/dL (8.5-10.1)
[2023-07-31 08:36] LABS: ALBUMIN 2.8 g/dl (3.4-5.0); BLOOD UREA NITROGEN 24.7 mg/dL (7-18)
[2023-07-31 08:38] LABS: CREATININE 1.2 mg/dL (0.55-1.3)
[2023-07-31 08:39] LABS: BILIRUBIN,TOTAL 0.7 mg/dL (0.2-1); PHOSPHOROUS 4.2 mg/dL (2.5-4.9); TOT PROT 6.7 g/dl (6.4-8.2)
[2023-07-31] MEDS: TAMSULOSIN HCL 0.4 MG CAP PO SCH (09:21)
[2023-07-31] MEDS: BICTEGRAV/EMTRICIT/TENOFOV (BIKTARVY) 50-200-25 MG TABLET PO SCH (09:21)
[2023-07-31] MEDS: BUDESONIDE/FORMETEROL FUMARATE 160/4.5 mcg INHALER IH SCH ×2 (09:49→22:34)
[2023-07-31] MEDS: APIXABAN 5 MG TABLET PO SCH ×2 (09:50→22:35)
[2023-07-31] MEDS: VARENICLINE TARTRATE 1 MG TAB PO SCH ×2 (09:50→09:59)
[2023-07-31] MEDS: SODIUM ZIRCONIUM CYCLOSILICATE (LOKELMA) 5 GM PACKET PO SCH (09:51)
[2023-07-31] MEDS ORDERED: FUROSEMIDE 40 MG/4 ML INJECTABLE VIAL IVPUSH SCH (10:00)
[2023-07-31] MEDS: DRONABINOL 2.5 MG CAPSULE PO SCH (14:38)
[2023-07-31 18:52] VITALS: RESP 20
[2023-07-31] MEDS: ATORVASTATIN CA 10 MG TABLET (FP) PO SCH (22:35)
[2023-08-01] MEDS: INSULIN SLIDING SCALE (NOVOLOG) 1 VIAL SQ SCH ×3 (06:18→16:33)
[2023-08-01 07:12] LABS: HEMATOCRIT 33.8 % (35.4-49); HEMOGLOBIN 11.3 GM/dL (11.7-16.9); MCH 29.3 pg (25.7-33.7); MCHC 33.4 g/dl (32.0-35.9); MEAN CELL VOLUME 87.7 fl (80-96); MEAN PLT VOLUME 8.7 fl (7.5-11.1); PLATELET COUNT 128 10^3/uL (134-434); RBC 3.86 M/mm3 (4.00-5.60); RDW 14.8 % (11.9-15.9)
[2023-08-01 07:21] LABS: POTASSIUM 3.6 mmol/L (3.5-5.1)
[2023-08-01 07:27] LABS: BLOOD UREA NITROGEN 25.8 mg/dL (7-18); CALCIUM 8.1 mg/dL (8.5-10.1)
[2023-08-01 07:30] LABS: CREATININE 1.4 mg/dL (0.55-1.3)
[2023-08-01] MEDS: ALBUTEROL SO4 2.5/IPRATROPIUM 0.5 INH SOL 3 ML VIAL.NEB. NEB SCH ×4 (07:30→20:25)
[2023-08-01] MEDS: TAMSULOSIN HCL 0.4 MG CAP PO SCH (08:39)
[2023-08-01] MEDS: BICTEGRAV/EMTRICIT/TENOFOV (BIKTARVY) 50-200-25 MG TABLET PO SCH (08:39)
[2023-08-01] MEDS: BUDESONIDE/FORMETEROL FUMARATE 160/4.5 mcg INHALER IH SCH ×2 (09:39→21:40)
[2023-08-01] MEDS: SODIUM ZIRCONIUM CYCLOSILICATE (LOKELMA) 5 GM PACKET PO SCH (09:39)
[2023-08-01] MEDS: DRONABINOL 2.5 MG CAPSULE PO SCH (09:39)
[2023-08-01] MEDS: APIXABAN 5 MG TABLET PO SCH ×2 (09:39→21:38)
[2023-08-01] MEDS: VARENICLINE TARTRATE 1 MG TAB PO SCH (09:41)
[2023-08-01] MEDS ORDERED: FUROSEMIDE 40 MG TABLET (FP) PO SCH (10:00)
[2023-08-01] MEDS: ASCORBIC ACID 250 MG TABLET (FP) PO SCH (21:38)
[2023-08-01] MEDS: MULTIVITAMINS THER W-MINERALS COMBO TABLET (FP) PO SCH (21:38)
[2023-08-01] MEDS: ATORVASTATIN CA 10 MG TABLET (FP) PO SCH (21:38)
[2023-08-02] MEDS: INSULIN SLIDING SCALE (NOVOLOG) 1 VIAL SQ SCH ×3 (06:28→16:19)
[2023-08-02 07:07] LABS: BLOOD UREA NITROGEN 19.5 mg/dL (7-18); CALCIUM 8.5 mg/dL (8.5-10.1)
[2023-08-02 07:10] LABS: CREATININE 1.2 mg/dL (0.55-1.3); PHOSPHOROUS 3.6 mg/dL (2.5-4.9)
[2023-08-02] MEDS: ALBUTEROL SO4 2.5/IPRATROPIUM 0.5 INH SOL 3 ML VIAL.NEB. NEB SCH ×3 (07:45→15:17)
[2023-08-02] MEDS: TAMSULOSIN HCL 0.4 MG CAP PO SCH (08:08)
[2023-08-02] MEDS: BICTEGRAV/EMTRICIT/TENOFOV (BIKTARVY) 50-200-25 MG TABLET PO SCH (08:08)
[2023-08-02] MEDS: MULTIVITAMINS THER W-MINERALS COMBO TABLET (FP) PO SCH (10:17)
[2023-08-02] MEDS: ASCORBIC ACID 250 MG TABLET (FP) PO SCH (10:17)
[2023-08-02] MEDS: APIXABAN 5 MG TABLET PO SCH (10:17)
[2023-08-02] MEDS: VARENICLINE TARTRATE 1 MG TAB PO SCH (10:18)
[2023-08-02] MEDS: DRONABINOL 2.5 MG CAPSULE PO SCH (10:18)
[2023-08-02] MEDS: BUDESONIDE/FORMETEROL FUMARATE 160/4.5 mcg INHALER IH SCH (10:18)
[2023-08-02 16:59] VITALS: BP 112/67; PULSE 100; TEMP 98.9
== END 2023-08-02 19:43 | disposition home or self-care (01) | DRG 309 ==
LOC: JER 13:51 → JERBED 16:04 → J4W 18:51 → OBSVTOIN 22:11
PROVIDERS: ADMIT Internal Medicine; ATTEND Internal Medicine
DX: I47.10 Supraventricular tachycardia, unspecified (principal); B20 Human immunodeficiency virus [HIV] disease; C34.90 Malignant neoplasm of unspecified part of unspecified bronchus or lung; C79.51 Secondary malignant neoplasm of bone; I50.32 Chronic diastolic (congestive) heart failure; J96.11 Chronic respiratory failure with hypoxia; J98.11 Atelectasis; J96.12 Chronic respiratory failure with hypercapnia; J44.9 Chronic obstructive pulmonary disease, unspecified; K21.9 Gastro-esophageal reflux disease without esophagitis; I11.0 Hypertensive heart disease with heart failure; E78.5 Hyperlipidemia, unspecified; I48.0 Paroxysmal atrial fibrillation; E11.9 Type 2 diabetes mellitus without complications
CPT/HCPCS: 0241U-QW; 36415; 71045-TC-FY; 71275-TC; 80048; 80053; 80076; 82728; 82962; 83540; 83550; 83735; 84100; 84439; 84443; 84466; 84481; 84484; 85025; 85027; 85045; 93005; 93010; 94640; 99285-25; G0378; J1100; Q9967

== ENCOUNTER 2023-08-05 08:37 | Day surgery (SDC) | payer OTHER ==
[2023-08-05] MEDS ORDERED: SODIUM CHLORIDE 250 ML IV ONE (09:30)
[2023-08-05 09:44] LABS: BASO % 0.5 % (0-2.0); EOS % 0.5 % (0-4.5); HEMATOCRIT 34.7 % (35.4-49); HEMOGLOBIN 11.5 GM/dL (11.7-16.9); LYMPH % 22.9 % (8-40); MCH 29.3 pg (25.7-33.7); MCHC 33.1 g/dl (32.0-35.9); MEAN CELL VOLUME 88.7 fl (80-96); MEAN PLT VOLUME 8.5 fl (7.5-11.1); MONO % 12.2 % (3.8-10.2); NEUT % 63.9 % (42.8-82.8); PLATELET COUNT 143 10^3/uL (134-434); RBC 3.91 M/mm3 (4.00-5.60); RDW 14.5 % (11.9-15.9); WHITE BLOOD COUNT 4.5 K/mm3 (4.0-10.0)
[2023-08-05] MEDS ORDERED: FAMOTIDINE 20 MG/50 ML IVPB 20 MG/50 ML MG IVPB ONE (10:00)
[2023-08-05] MEDS ORDERED: PALONOSETRON HCL 0.25 MG/5 ML VIAL IVPUSH ONE (10:00)
[2023-08-05] MEDS ORDERED: LOPERAMIDE HCL 2 MG CAPSULE PO PRN (10:00)
[2023-08-05] MEDS ORDERED: DEXAMETHASONE SODIUM PHOSPHATE 10 MG in SODIUM CHLORIDE 50 ML IVPB ONE (10:00)
[2023-08-05] MEDS ORDERED: PACLITAXEL PROTEIN-BOUND 160 MG in SODIUM CHLORIDE 32 ML IVPB ONE (10:30)
[2023-08-05 10:52] LABS: POTASSIUM 4.8 mmol/L (3.5-5.1)
[2023-08-05] MEDS ORDERED: SODIUM CHLORIDE IVPB ONE (11:00)
[2023-08-05] MEDS ORDERED: CARBOPLATIN IVPB ONE (11:00)
[2023-08-05 11:07] LABS: BLOOD UREA NITROGEN 21.3 mg/dL (7-18); CALCIUM 8.4 mg/dL (8.5-10.1); CREATININE 1.5 mg/dL (0.55-1.3)
[2023-08-05 11:08] LABS: ALBUMIN 2.6 g/dl (3.4-5.0)
[2023-08-05 11:09] LABS: BILIRUBIN,TOTAL 0.4 mg/dL (0.2-1); TOT PROT 6.6 g/dl (6.4-8.2)
[2023-08-05 11:10] LABS: BILIRUBIN,DIRECT 0.1 mg/dL (0.0-0.2)
[2023-08-05 14:06] VITALS: TEMP 98.1
[2023-08-05] MEDS ORDERED: PORTA CATH FLUSH 10 ML IVPUSH PRN (14:06)
[2023-08-05 14:26] VITALS: BP 94/62; PULSE 106; RESP 20
== END 2023-08-05 12:35 | disposition home or self-care (01) ==
LOC: JONCCHEMO 08:37 → J7W 08:40 → JONCCHEMO 12:35
PROVIDERS: ATTEND Internal Medicine Hematology & Oncology
DX: Z51.11 Encounter for antineoplastic chemotherapy (principal); C34.91 Malignant neoplasm of unspecified part of right bronchus or lung
CPT/HCPCS: 36415; 80048; 80076; 83735; 85025; 96367; 96375; 96413; 96417; J2469; J9264

== ENCOUNTER 2023-08-11 09:49 | Day surgery (SDC) | payer OTHER ==
[~2023-08-11 09:49] MED LIST: DEXAMETHASONE SODIUM PHOSPHATE 6 MG in SODIUM CHLORIDE 50 ML IVPB ONE; FAMOTIDINE 20 MG/50 ML IVPB 20 MG/50 ML MG IVPB ONE; GRANISETRON HCL/PF 1 MG in SODIUM CHLORIDE 50 ML IVPB ONE; SODIUM CHLORIDE 250 ML IV ONE
[2023-08-11] MEDS ORDERED: PACLITAXEL PROTEIN-BOUND 160 MG in SODIUM CHLORIDE 32 ML IVPB ONE (10:00)
[2023-08-11 10:55] LABS: BASO % 0.4 % (0-2.0); EOS % 0.4 % (0-4.5); HEMATOCRIT 34.5 % (35.4-49); HEMOGLOBIN 11.1 GM/dL (11.7-16.9); LYMPH % 26.4 % (8-40); MCH 28.8 pg (25.7-33.7); MCHC 32.3 g/dl (32.0-35.9); MEAN CELL VOLUME 89.1 fl (80-96); MEAN PLT VOLUME 8.6 fl (7.5-11.1); MONO % 8.5 % (3.8-10.2); NEUT % 64.3 % (42.8-82.8); PLATELET COUNT 107 10^3/uL (134-434); RBC 3.87 M/mm3 (4.00-5.60); RDW 14.6 % (11.9-15.9); WHITE BLOOD COUNT 3.9 K/mm3 (4.0-10.0)
[2023-08-11 11:46] LABS: POTASSIUM 5.4 mmol/L (3.5-5.1)
[2023-08-11 11:48] LABS: ALBUMIN 2.7 g/dl (3.4-5.0); BLOOD UREA NITROGEN 18.9 mg/dL (7-18); CALCIUM 9.1 mg/dL (8.5-10.1); MAGNESIUM 2.2 mg/dL (1.8-2.4)
[2023-08-11 11:52] LABS: CREATININE 1.4 mg/dL (0.55-1.3)
[2023-08-11] MEDS ORDERED: SODIUM POLYSTYRENE SULFONATE 15 GM/60 ML BOTTLE PO ONE (11:52)
[2023-08-11 11:53] LABS: BILIRUBIN,TOTAL 0.4 mg/dL (0.2-1); TOT PROT 6.7 g/dl (6.4-8.2)
[2023-08-11 16:57] VITALS: BP 102/67; PULSE 116; RESP 18; TEMP 98.1
[2023-08-11] MEDS ORDERED: PORTA CATH FLUSH 10 ML IVPUSH PRN (16:57)
== END 2023-08-11 14:30 | disposition home or self-care (01) ==
LOC: JONCCHEMO 09:49 → J7W 10:00 → JONCCHEMO 14:30
PROVIDERS: ATTEND Internal Medicine Hematology & Oncology
DX: Z51.11 Encounter for antineoplastic chemotherapy (principal); C34.91 Malignant neoplasm of unspecified part of right bronchus or lung
CPT/HCPCS: 36415; 80053; 83735; 84439; 84443; 85025; 96367; 96413; J9264

== ENCOUNTER 2023-08-25 11:42 | Day surgery (SDC) | payer OTHER ==
[~2023-08-25 11:42] MED LIST changes: +CARBOPLATIN IVPB ONE; +DEXAMETHASONE SODIUM PHOSPHATE 10 MG in SODIUM CHLORIDE 50 ML IVPB ONE; -DEXAMETHASONE SODIUM PHOSPHATE 6 MG in SODIUM CHLORIDE 50 ML IVPB ONE; -GRANISETRON HCL/PF 1 MG in SODIUM CHLORIDE 50 ML IVPB ONE; +LIDOCAINE 2.5%/PRILOCAINE 2.5% (5 Gram/TUBE) TP SCH; +PACLITAXEL PROTEIN BOUND IVPB ONE; +PALONOSETRON HCL 0.25 MG/5 ML VIAL IVPUSH ONE; +SODIUM CHLORIDE IVPB ONE
[2023-08-25 12:17] LABS: BASO % 0.1 % (0-2.0); HEMATOCRIT 31.5 % (35.4-49); HEMOGLOBIN 10.1 GM/dL (11.7-16.9); LYMPH % 14.5 % (8-40); MCH 28.4 pg (25.7-33.7); MEAN CELL VOLUME 88.9 fl (80-96); MEAN PLT VOLUME 7.6 fl (7.5-11.1); MONO % 4.1 % (3.8-10.2); NEUT % 81.3 % (42.8-82.8); PLATELET COUNT 99 10^3/uL (134-434); RBC 3.55 M/mm3 (4.00-5.60); RDW 15.5 % (11.9-15.9)
[2023-08-25 12:42] LABS: POTASSIUM 4.5 mmol/L (3.5-5.1)
[2023-08-25 13:10] LABS: ALBUMIN 2.6 g/dl (3.4-5.0); CALCIUM 8.5 mg/dL (8.5-10.1)
[2023-08-25 13:11] LABS: BLOOD UREA NITROGEN 22.2 mg/dL (7-18); MAGNESIUM 1.8 mg/dL (1.8-2.4)
[2023-08-25 13:13] LABS: CREATININE 1.3 mg/dL (0.55-1.3)
[2023-08-25 13:15] LABS: BILIRUBIN,TOTAL 0.3 mg/dL (0.2-1); TOT PROT 6.7 g/dl (6.4-8.2)
[2023-08-25] MEDS ORDERED: PORTA CATH FLUSH 10 ML IVPUSH PRN (18:15)
[2023-08-25 18:16] VITALS: BP 105/57; PULSE 91; RESP 22; TEMP 97.9
== END 2023-08-25 16:15 | disposition home or self-care (01) ==
LOC: JONCCHEMO 11:42 → J7W 11:46 → JONCCHEMO 16:15
PROVIDERS: ATTEND Internal Medicine Hematology & Oncology
DX: Z51.11 Encounter for antineoplastic chemotherapy (principal); C34.91 Malignant neoplasm of unspecified part of right bronchus or lung
CPT/HCPCS: 36415; 80053; 83735; 85025; 96375; 96413; 96417; J2469; J9264

== ENCOUNTER 2023-09-01 13:15 | Day surgery (SDC) | payer OTHER ==
[~2023-09-01 13:15] MED LIST changes: -CARBOPLATIN IVPB ONE; -DEXAMETHASONE SODIUM PHOSPHATE 10 MG in SODIUM CHLORIDE 50 ML IVPB ONE; +DEXAMETHASONE SODIUM PHOSPHATE 6 MG in SODIUM CHLORIDE 50 ML IVPB ONE; +GRANISETRON HCL/PF 1 MG in SODIUM CHLORIDE 50 ML IVPB ONE; -LIDOCAINE 2.5%/PRILOCAINE 2.5% (5 Gram/TUBE) TP SCH; -PALONOSETRON HCL 0.25 MG/5 ML VIAL IVPUSH ONE
[2023-09-01 13:22] LABS: HEMATOCRIT 31.4 % (35.4-49); HEMOGLOBIN 10.3 GM/dL (11.7-16.9); LYMPH % 14.2 % (8-40); MCHC 32.7 g/dl (32.0-35.9); MEAN CELL VOLUME 88.8 fl (80-96); MEAN PLT VOLUME 8.2 fl (7.5-11.1); NEUT % 81.8 % (42.8-82.8); PLATELET COUNT 186 10^3/uL (134-434); RBC 3.54 M/mm3 (4.00-5.60); WHITE BLOOD COUNT 4.1 K/mm3 (4.0-10.0)
[2023-09-01 13:49] LABS: POTASSIUM 4.5 mmol/L (3.5-5.1)
[2023-09-01 13:51] LABS: ALBUMIN 2.6 g/dl (3.4-5.0); CALCIUM 8.2 mg/dL (8.5-10.1)
[2023-09-01 13:52] LABS: MAGNESIUM 1.8 mg/dL (1.8-2.4)
[2023-09-01 13:55] LABS: CREATININE 1.2 mg/dL (0.55-1.3)
[2023-09-01 13:56] LABS: BILIRUBIN,TOTAL 0.4 mg/dL (0.2-1); TOT PROT 6.7 g/dl (6.4-8.2)
[2023-09-01 16:25] VITALS: TEMP 98.4
[2023-09-01 16:30] VITALS: BP 115/74; PULSE 111; RESP 20
[2023-09-01] MEDS ORDERED: PORTA CATH FLUSH 10 ML IVPUSH PRN (16:30)
== END 2023-09-01 16:35 | disposition home or self-care (01) ==
LOC: JONCCHEMO 13:15 → J7W 13:16 → JONCCHEMO 16:35
PROVIDERS: ATTEND Internal Medicine Hematology & Oncology
DX: Z51.11 Encounter for antineoplastic chemotherapy (principal); C34.91 Malignant neoplasm of unspecified part of right bronchus or lung
CPT/HCPCS: 36415; 80053; 83735; 85025; 96367; 96375; 96413; J9264

== ENCOUNTER 2023-09-08 11:47 | Day surgery (SDC) | payer OTHER ==
[2023-09-08 12:24] LABS: BASO % 0.3 % (0-2.0); EOS % 0.1 % (0-4.5); HEMATOCRIT 30.5 % (35.4-49); HEMOGLOBIN 9.8 GM/dL (11.7-16.9); LYMPH % 38.6 % (8-40); MCH 28.7 pg (25.7-33.7); MEAN CELL VOLUME 89.4 fl (80-96); MEAN PLT VOLUME 7.7 fl (7.5-11.1); MONO % 10.6 % (3.8-10.2); NEUT % 50.4 % (42.8-82.8); PLATELET COUNT 79 10^3/uL (134-434); RBC 3.41 M/mm3 (4.00-5.60); RDW 15.7 % (11.9-15.9); WHITE BLOOD COUNT 2.7 K/mm3 (4.0-10.0)
[2023-09-08 12:47] LABS: POTASSIUM 4.3 mmol/L (3.5-5.1)
[2023-09-08 12:50] LABS: CALCIUM 8.9 mg/dL (8.5-10.1)
[2023-09-08 12:51] LABS: ALBUMIN 2.6 g/dl (3.4-5.0); MAGNESIUM 1.8 mg/dL (1.8-2.4)
[2023-09-08 12:54] LABS: CREATININE 0.9 mg/dL (0.55-1.3)
[2023-09-08 12:56] LABS: BILIRUBIN,TOTAL 0.4 mg/dL (0.2-1); TOT PROT 6.2 g/dl (6.4-8.2)
[2023-09-08 17:42] VITALS: BP 113/62; PULSE 107; RESP 20; TEMP 98
[2023-09-08] MEDS ORDERED: PORTA CATH FLUSH 10 ML IVPUSH PRN (17:42)
== END 2023-09-08 15:30 | disposition home or self-care (01) ==
LOC: JONCCHEMO 11:47 → J7W 11:48 → JONCCHEMO 15:30
PROVIDERS: ATTEND Internal Medicine Hematology & Oncology
DX: Z51.11 Encounter for antineoplastic chemotherapy (principal); C34.91 Malignant neoplasm of unspecified part of right bronchus or lung
CPT/HCPCS: 36415; 80053; 83735; 85025; 96367; 96413; J9264

== ENCOUNTER 2023-09-15 12:42 | Day surgery (SDC) | payer OTHER ==
[~2023-09-15 12:42] MED LIST changes: +CARBOPLATIN IVPB ONE; +DEXAMETHASONE SODIUM PHOSPHATE 10 MG in SODIUM CHLORIDE 50 ML IVPB ONE; -DEXAMETHASONE SODIUM PHOSPHATE 6 MG in SODIUM CHLORIDE 50 ML IVPB ONE; -GRANISETRON HCL/PF 1 MG in SODIUM CHLORIDE 50 ML IVPB ONE; +PALONOSETRON HCL 0.25 MG/5 ML VIAL IVPUSH ONE
[2023-09-15 13:01] LABS: BASO % 0.4 % (0-2.0); EOS % 0.2 % (0-4.5); HEMATOCRIT 29.4 % (35.4-49); HEMOGLOBIN 9.3 GM/dL (11.7-16.9); LYMPH % 44.7 % (8-40); MCH 29.1 pg (25.7-33.7); MCHC 31.8 g/dl (32.0-35.9); MEAN CELL VOLUME 91.5 fl (80-96); MEAN PLT VOLUME 8.1 fl (7.5-11.1); MONO % 7.2 % (3.8-10.2); NEUT % 47.5 % (42.8-82.8); PLATELET COUNT 94 10^3/uL (134-434); RBC 3.21 M/mm3 (4.00-5.60)
[2023-09-15 13:18] LABS: POTASSIUM 3.8 mmol/L (3.5-5.1)
[2023-09-15 13:20] LABS: CALCIUM 9.1 mg/dL (8.5-10.1)
[2023-09-15 13:21] LABS: ALBUMIN 2.6 g/dl (3.4-5.0); MAGNESIUM 1.8 mg/dL (1.8-2.4)
[2023-09-15 13:24] LABS: CREATININE 1.1 mg/dL (0.55-1.3)
[2023-09-15 13:26] LABS: BILIRUBIN,TOTAL 0.3 mg/dL (0.2-1); TOT PROT 6.3 g/dl (6.4-8.2)
[2023-09-15] MEDS ORDERED: SODIUM CHLORIDE IVPB ONE (14:00)
[2023-09-15] MEDS ORDERED: CARBOPLATIN IVPB ONE (14:00)
[2023-09-15 15:40] VITALS: TEMP 98
[2023-09-15 16:55] VITALS: BP 103/67; PULSE 101; RESP 18
[2023-09-15] MEDS ORDERED: PORTA CATH FLUSH 10 ML IVPUSH PRN (16:55)
== END 2023-09-15 16:00 | disposition home or self-care (01) ==
LOC: JONCCHEMO 12:42 → J7W 12:42 → JONCCHEMO 16:00
PROVIDERS: ATTEND Internal Medicine Hematology & Oncology
DX: Z51.11 Encounter for antineoplastic chemotherapy (principal); C34.91 Malignant neoplasm of unspecified part of right bronchus or lung
CPT/HCPCS: 36415; 80053; 83735; 85025; 96367; 96375; 96413; 96417; J2469; J9264

== ENCOUNTER 2023-09-22 13:03 | Day surgery (SDC) | payer OTHER ==
[~2023-09-22 13:03] MED LIST changes: -CARBOPLATIN IVPB ONE; -DEXAMETHASONE SODIUM PHOSPHATE 10 MG in SODIUM CHLORIDE 50 ML IVPB ONE; +DEXAMETHASONE SODIUM PHOSPHATE 6 MG in SODIUM CHLORIDE 50 ML IVPB ONE; +FUROSEMIDE 40 MG/4 ML INJECTABLE VIAL IVPUSH ONE; +GRANISETRON HCL/PF 1 MG in SODIUM CHLORIDE 50 ML IVPB ONE; -PALONOSETRON HCL 0.25 MG/5 ML VIAL IVPUSH ONE
[2023-09-22 13:36] LABS: BASO % 0.3 % (0-2.0); EOS % 0.2 % (0-4.5); HEMATOCRIT 25.9 % (35.4-49); HEMOGLOBIN 8.5 GM/dL (11.7-16.9); LYMPH % 55.4 % (8-40); MCH 29.8 pg (25.7-33.7); MCHC 32.9 g/dl (32.0-35.9); MEAN CELL VOLUME 90.5 fl (80-96); MEAN PLT VOLUME 8.6 fl (7.5-11.1); MONO % 10.3 % (3.8-10.2); NEUT % 33.8 % (42.8-82.8); PLATELET COUNT 179 10^3/uL (134-434); RBC 2.86 M/mm3 (4.00-5.60); RDW 16.6 % (11.9-15.9); WHITE BLOOD COUNT 3.3 K/mm3 (4.0-10.0)
[2023-09-22 13:45] LABS: POTASSIUM 4.3 mmol/L (3.5-5.1)
[2023-09-22 13:47] LABS: ALBUMIN 2.7 g/dl (3.4-5.0); BLOOD UREA NITROGEN 13.9 mg/dL (7-18); CALCIUM 8.9 mg/dL (8.5-10.1)
[2023-09-22 13:48] LABS: MAGNESIUM 1.6 mg/dL (1.8-2.4)
[2023-09-22 13:50] LABS: CREATININE 1.1 mg/dL (0.55-1.3)
[2023-09-22 13:52] LABS: BILIRUBIN,TOTAL 0.4 mg/dL (0.2-1); TOT PROT 6.4 g/dl (6.4-8.2)
[2023-09-22] MEDS ORDERED: MAGNESIUM 2GM/50ML STERILE WATER IVPB IVPB ONE (14:45)
[2023-09-22] MEDS ORDERED: FUROSEMIDE 40 MG/4 ML INJECTABLE VIAL ONE (14:45)
[2023-09-22 18:33] VITALS: TEMP 98
[2023-09-22 18:43] VITALS: BP 117/64; PULSE 52; RESP 18
[2023-09-22] MEDS ORDERED: PORTA CATH FLUSH 10 ML IVPUSH PRN (18:43)
== END 2023-09-22 17:00 | disposition home or self-care (01) ==
LOC: JONCCHEMO 13:03 → J7W 13:04 → JONCCHEMO 17:00
PROVIDERS: ATTEND Internal Medicine Hematology & Oncology
DX: Z51.11 Encounter for antineoplastic chemotherapy (principal); C34.91 Malignant neoplasm of unspecified part of right bronchus or lung
CPT/HCPCS: 36415; 71046-TC-FY; 80053; 83735; 85025; 96367; 96375; 96413; J9264

== ENCOUNTER 2023-09-23 15:30 | Day surgery (SDC) | payer OTHER ==
[~2023-09-23 15:30] MED LIST changes: -DEXAMETHASONE SODIUM PHOSPHATE 6 MG in SODIUM CHLORIDE 50 ML IVPB ONE; -FAMOTIDINE 20 MG/50 ML IVPB 20 MG/50 ML MG IVPB ONE; -FUROSEMIDE 40 MG/4 ML INJECTABLE VIAL IVPUSH ONE; -GRANISETRON HCL/PF 1 MG in SODIUM CHLORIDE 50 ML IVPB ONE; -PACLITAXEL PROTEIN BOUND IVPB ONE; -SODIUM CHLORIDE 250 ML IV ONE; -SODIUM CHLORIDE IVPB ONE; +TBO-FILGRASTIM 480 MCG/0.8 ML DISP.SYRIN SQ ONE
[2023-09-23 17:50] VITALS: BP 90/60; PULSE 68; RESP 20; TEMP 98
== END 2023-09-23 15:40 | disposition home or self-care (01) ==
LOC: JONCCHEMO 15:30 → J7W 15:30 → JONCCHEMO 15:40
PROVIDERS: ATTEND Internal Medicine Hematology & Oncology
PROC: 3E013GC Introduction of Other Therapeutic Substance into Subcutaneous Tissue, Percutaneous Approach (ICD-10-PCS; principal; 2023-09-23)
DX: C34.91 Malignant neoplasm of unspecified part of right bronchus or lung (principal); Z76.89 Persons encountering health services in other specified circumstances
CPT/HCPCS: 96372; J1447

== ENCOUNTER 2023-09-24 15:58 | Day surgery (SDC) | payer OTHER ==
[2023-09-24 18:06] VITALS: BP 91/47; PULSE 108; RESP 20; TEMP 98.4
== END 2023-09-24 16:20 | disposition home or self-care (01) ==
LOC: JONCCHEMO 15:58 → J7W 15:58 → JONCCHEMO 16:20
PROVIDERS: ATTEND Internal Medicine Hematology & Oncology
PROC: 3E013GC Introduction of Other Therapeutic Substance into Subcutaneous Tissue, Percutaneous Approach (ICD-10-PCS; principal; 2023-09-24)
DX: C34.91 Malignant neoplasm of unspecified part of right bronchus or lung (principal); Z76.89 Persons encountering health services in other specified circumstances
CPT/HCPCS: 96372; J1447

== ENCOUNTER 2023-09-29 13:00 | Day surgery (SDC) | payer OTHER ==
[2023-09-29 13:12] LABS: HEMATOCRIT 25.4 % (35.4-49); HEMOGLOBIN 8.4 GM/dL (11.7-16.9); MCHC 33.1 g/dl (32.0-35.9); MEAN CELL VOLUME 90.5 fl (80-96); MEAN PLT VOLUME 8.5 fl (7.5-11.1); PLATELET COUNT 100 10^3/uL (134-434); RBC 2.81 M/mm3 (4.00-5.60); RDW 16.9 % (11.9-15.9); WHITE BLOOD COUNT 5.5 K/mm3 (4.0-10.0)
[2023-09-29] MEDS: SODIUM CHLORIDE 250 ML IV ONE (13:29)
[2023-09-29 13:44] LABS: POTASSIUM 3.2 mmol/L (3.5-5.1)
[2023-09-29 13:45] VITALS: RESP 20; TEMP 99.4
[2023-09-29 13:45] LABS: CALCIUM 8.8 mg/dL (8.5-10.1)
[2023-09-29 13:46] LABS: ALBUMIN 2.5 g/dl (3.4-5.0); BLOOD UREA NITROGEN 9.8 mg/dL (7-18); MAGNESIUM 1.5 mg/dL (1.8-2.4)
[2023-09-29 13:51] LABS: BILIRUBIN,TOTAL 0.3 mg/dL (0.2-1); TOT PROT 6.2 g/dl (6.4-8.2)
[2023-09-29 13:57] LABS: ANISOCYTOSIS 1+; MACROCYTOSIS 1+
[2023-09-29] MEDS: GRANISETRON HCL/PF 1 MG in SODIUM CHLORIDE 50 ML IVPB ONE (14:06)
[2023-09-29] MEDS: DEXAMETHASONE SODIUM PHOSPHATE 6 MG in SODIUM CHLORIDE 50 ML IVPB ONE (14:25)
[2023-09-29] MEDS: FAMOTIDINE 20 MG/50 ML IVPB 20 MG/50 ML MG IVPB ONE (14:43)
[2023-09-29] MEDS: SODIUM CHLORIDE IVPB ONE (15:17)
[2023-09-29] MEDS: PACLITAXEL PROTEIN BOUND IVPB ONE (15:17)
[2023-09-29] MEDS: MAGNESIUM 2GM/50ML STERILE WATER IVPB IVPB ONE (15:54)
[2023-09-29] MEDS: POTASSIUM CHLORIDE TABS 20 MEQ TABLET.ER (FP) PO SCH (15:54)
[2023-09-29 17:01] VITALS: BP 103/66; PULSE 112
[2023-09-29] MEDS: PORTA CATH FLUSH 10 ML IVPUSH PRN (17:06)
== END 2023-09-29 17:19 | disposition home or self-care (01) ==
LOC: JONCCHEMO 13:00
PROVIDERS: ATTEND Internal Medicine Hematology & Oncology
DX: Z51.11 Encounter for antineoplastic chemotherapy (principal); C34.91 Malignant neoplasm of unspecified part of right bronchus or lung
CPT/HCPCS: 36415; 80053; 83735; 85025; 96367; 96375; 96413; J9264

== ENCOUNTER 2023-10-08 06:00 | Inpatient (IN) | payer OTHER ==
[2023-10-08 10:07] VITALS: BMI 22.9
[2023-10-08 12:11] LABS: INR 1.19 (0.83-1.09); PROTHROMBIN TIME (PATIENT) 13.8 SEC (9.7-13.0)
[2023-10-08] MEDS ORDERED: ceFAZolin SODIUM 1 GM VIAL ONE (13:49)
[2023-10-08] MEDS: BUPIVACAINE HCL/PF 0.25% (2.5MG/ML) 10 ML VIAL IJ ONE (13:50)
[2023-10-08] MEDS: ceFAZolin SODIUM 1 GM VIAL IVPB ONE (13:50)
[2023-10-08] MEDS ORDERED: MIDAZOLAM HCL 2 MG/2 ML SINGLE DOSE VIAL ONE (13:53)
[2023-10-08] MEDS ORDERED: ONDANSETRON 4 MG/2 ML VIAL IVPUSH PRN (14:41)
[2023-10-08] MEDS ORDERED: PANTOPRAZOLE 20 MG TABLET PO PRN (15:00)
[2023-10-08] MEDS ORDERED: FUROSEMIDE 20 MG TABLET (FP) PO PRN (15:00)
[2023-10-08] MEDS: ALBUTEROL SO4 HFA INHALER IH PRN (21:33)
[2023-10-08] MEDS: APIXABAN 5 MG TABLET PO SCH (22:00)
[2023-10-08] MEDS: ATORVASTATIN CA 10 MG TABLET (FP) PO SCH (22:00)
[2023-10-09 08:45] LABS: HEMATOCRIT 22.9 % (35.4-49); HEMOGLOBIN 7.5 GM/dL (11.7-16.9); MCHC 32.9 g/dl (32.0-35.9); MEAN CELL VOLUME 91.4 fl (80-96); MEAN PLT VOLUME 8.1 fl (7.5-11.1); PLATELET COUNT 65 10^3/uL (134-434); RDW 17.9 % (11.9-15.9); WHITE BLOOD COUNT 4.7 K/mm3 (4.0-10.0)
[2023-10-09 09:07] LABS: POTASSIUM 4.2 mmol/L (3.5-5.1)
[2023-10-09 09:11] LABS: ALBUMIN 2.3 g/dl (3.4-5.0); BLOOD UREA NITROGEN 11.1 mg/dL (7-18); CALCIUM 8.3 mg/dL (8.5-10.1)
[2023-10-09 09:14] LABS: CREATININE 0.9 mg/dL (0.55-1.3)
[2023-10-09 09:16] LABS: BILIRUBIN,TOTAL 0.4 mg/dL (0.2-1); TOT PROT 5.6 g/dl (6.4-8.2)
[2023-10-09] MEDS: TAMSULOSIN HCL 0.4 MG CAP PO SCH (09:18)
[2023-10-09] MEDS: BICTEGRAV/EMTRICIT/TENOFOV (BIKTARVY) 50-200-25 MG TABLET PO SCH (09:28)
[2023-10-09] MEDS: POTASSIUM CHLORIDE ORAL LIQUID 20 MEQ/15 ML PO SCH (09:28)
[2023-10-09] MEDS: guaiFENesin/D-METHORPHAN TAB.ER.12H PO SCH (13:21)
[2023-10-09] MEDS: ACETAMINOPHEN 1000 MG/100 ML BAG IVPB PRN (16:40)
[2023-10-09] MEDS: INSULIN ASPART SLIDING SCALE (NOVOLOG) 1 VIAL SQ SCH (17:10)
[2023-10-10 07:42] LABS: BASO % 0.3 % (0-2.0); EOS % 0.4 % (0-4.5); HEMATOCRIT 26.2 % (35.4-49); HEMOGLOBIN 8.5 GM/dL (11.7-16.9); LYMPH % 26.9 % (8-40); MCH 29.8 pg (25.7-33.7); MCHC 32.2 g/dl (32.0-35.9); MEAN CELL VOLUME 92.3 fl (80-96); MEAN PLT VOLUME 8.1 fl (7.5-11.1); MONO % 10.3 % (3.8-10.2); NEUT % 62.1 % (42.8-82.8); PLATELET COUNT 73 10^3/uL (134-434); RBC 2.84 M/mm3 (4.00-5.60); RDW 18.8 % (11.9-15.9); WHITE BLOOD COUNT 4.5 K/mm3 (4.0-10.0)
[2023-10-10 08:00] LABS: POTASSIUM 4.5 mmol/L (3.5-5.1)
[2023-10-10 08:08] LABS: ALBUMIN 2.4 g/dl (3.4-5.0); BLOOD UREA NITROGEN 10.7 mg/dL (7-18); CALCIUM 8.7 mg/dL (8.5-10.1)
[2023-10-10 08:10] LABS: CREATININE 0.9 mg/dL (0.55-1.3)
[2023-10-10 08:13] LABS: BILIRUBIN,TOTAL 0.4 mg/dL (0.2-1)
[2023-10-10] MEDS: APIXABAN 5 MG TABLET PO SCH (09:20)
[2023-10-10] MEDS: FLUTICASONE/UMECLIDIN/VILANTER(200-62.5-25 TRELEGY ELLIPTA) INAHLER IH SCH (10:47)
[2023-10-10] MEDS: PANTOPRAZOLE 20 MG TABLET PO PRN (10:50)
[2023-10-10] MEDS: ACETAMINOPHEN 325 MG TABLET (FP) PO PRN (14:49)
[2023-10-11 08:04] LABS: BASO % 0.3 % (0-2.0); EOS % 0.6 % (0-4.5); HEMATOCRIT 24.5 % (35.4-49); MCHC 32.5 g/dl (32.0-35.9); MEAN CELL VOLUME 92.2 fl (80-96); MEAN PLT VOLUME 8.1 fl (7.5-11.1); NEUT % 62.1 % (42.8-82.8); PLATELET COUNT 75 10^3/uL (134-434); RBC 2.66 M/mm3 (4.00-5.60); RDW 18.4 % (11.9-15.9); WHITE BLOOD COUNT 3.6 K/mm3 (4.0-10.0)
[2023-10-11 08:20] LABS: POTASSIUM 4.9 mmol/L (3.5-5.1)
[2023-10-11 08:23] LABS: BLOOD UREA NITROGEN 11.9 mg/dL (7-18)
[2023-10-11 08:26] LABS: ALBUMIN 2.2 g/dl (3.4-5.0)
[2023-10-11 08:30] LABS: BILIRUBIN,TOTAL 0.4 mg/dL (0.2-1); TOT PROT 5.7 g/dl (6.4-8.2)
[2023-10-12 06:35] LABS: BASO % 0.4 % (0-2.0); EOS % 0.9 % (0-4.5); HEMOGLOBIN 7.8 GM/dL (11.7-16.9); LYMPH % 29.2 % (8-40); MCH 29.8 pg (25.7-33.7); MCHC 32.5 g/dl (32.0-35.9); MEAN CELL VOLUME 91.8 fl (80-96); MEAN PLT VOLUME 7.8 fl (7.5-11.1); MONO % 11.6 % (3.8-10.2); NEUT % 57.9 % (42.8-82.8); PLATELET COUNT 75 10^3/uL (134-434); RBC 2.62 M/mm3 (4.00-5.60); RDW 18.3 % (11.9-15.9); WHITE BLOOD COUNT 3.4 K/mm3 (4.0-10.0)
[2023-10-12 06:50] LABS: POTASSIUM 4.3 mmol/L (3.5-5.1)
[2023-10-12 06:53] LABS: ALBUMIN 2.1 g/dl (3.4-5.0); BLOOD UREA NITROGEN 10.4 mg/dL (7-18); CALCIUM 8.1 mg/dL (8.5-10.1)
[2023-10-12 06:56] LABS: CREATININE 0.9 mg/dL (0.55-1.3)
[2023-10-12 06:58] LABS: BILIRUBIN,TOTAL 0.3 mg/dL (0.2-1); TOT PROT 5.4 g/dl (6.4-8.2)
[2023-10-13] MEDS ORDERED: INSULIN ASPART SLIDING SCALE (NOVOLOG) 1 VIAL SQ ONE (06:18)
[2023-10-13] MEDS: FUROSEMIDE 40 MG/4 ML INJECTABLE VIAL IVPUSH ONE (12:43)
[2023-10-13] MEDS: TBO-FILGRASTIM 300 MCG/0.5 ML DISP.SYRINGE SQ ONE (14:39)
[2023-10-14 08:22] LABS: POTASSIUM 4.2 mmol/L (3.5-5.1)
[2023-10-14 08:28] LABS: CALCIUM 8.7 mg/dL (8.5-10.1)
[2023-10-14 08:29] LABS: BLOOD UREA NITROGEN 11.2 mg/dL (7-18)
[2023-10-14 08:32] LABS: CREATININE 1.1 mg/dL (0.55-1.3)
[2023-10-14 08:55] LABS: BASO % 0.2 % (0-2.0); EOS % 0.6 % (0-4.5); HEMATOCRIT 30.9 % (35.4-49); HEMOGLOBIN 10.2 GM/dL (11.7-16.9); MCH 30.3 pg (25.7-33.7); MCHC 32.8 g/dl (32.0-35.9); MEAN CELL VOLUME 92.2 fl (80-96); MEAN PLT VOLUME 8.8 fl (7.5-11.1); MONO % 8.7 % (3.8-10.2); NEUT % 76.5 % (42.8-82.8); PLATELET COUNT 115 10^3/uL (134-434); RBC 3.36 M/mm3 (4.00-5.60); RDW 17.8 % (11.9-15.9); WHITE BLOOD COUNT 10.6 K/mm3 (4.0-10.0)
[2023-10-14 09:31] VITALS: BP 105/58; PULSE 116; RESP 19; TEMP 98.2
== END 2023-10-14 11:49 | disposition home health service (06) | DRG 181 ==
LOC: J2C 06:00 → J4S 16:43
PROVIDERS: ADMIT Student in an Organized Health Care Education/Training Program; ATTEND Nurse Practitioner
PROC: 0W9930Z Drainage of Right Pleural Cavity with Drainage Device, Percutaneous Approach (ICD-10-PCS; principal; 2023-10-09)
DX: C34.11 Malignant neoplasm of upper lobe, right bronchus or lung (principal); C79.51 Secondary malignant neoplasm of bone; J96.11 Chronic respiratory failure with hypoxia; J96.12 Chronic respiratory failure with hypercapnia; J44.0 Chronic obstructive pulmonary disease with (acute) lower respiratory infection; I50.32 Chronic diastolic (congestive) heart failure; I47.20 Ventricular tachycardia, unspecified; J90 Pleural effusion, not elsewhere classified; E11.9 Type 2 diabetes mellitus without complications; I48.0 Paroxysmal atrial fibrillation; E78.5 Hyperlipidemia, unspecified; K21.9 Gastro-esophageal reflux disease without esophagitis; Z21 Asymptomatic human immunodeficiency virus [HIV] infection status; I11.0 Hypertensive heart disease with heart failure; Z85.46 Personal history of malignant neoplasm of prostate; Z85.038 Personal history of other malignant neoplasm of large intestine
CPT/HCPCS: 36415; 36430; 71045-TC-FY; 80048; 80053; 82962; 85025; 85027; 85610; 86850; 86900; 86901; 86922; 88108; 88305-TC; 94760; J0131; J1447; P9058

== ENCOUNTER 2023-10-20 11:46 | Day surgery (SDC) | payer OTHER ==
[~2023-10-20 11:46] MED LIST changes: +CARBOPLATIN IVPB ONE; +DEXAMETHASONE SODIUM PHOSPHATE 10 MG in SODIUM CHLORIDE 50 ML IVPB ONE; +FAMOTIDINE 20 MG/50 ML IVPB 20 MG/50 ML MG IVPB ONE; +PACLITAXEL PROTEIN BOUND IVPB ONE; +PALONOSETRON HCL 0.25 MG/5 ML VIAL IVPUSH ONE; +SODIUM CHLORIDE 250 ML IV ONE; +SODIUM CHLORIDE IVPB ONE; -TBO-FILGRASTIM 480 MCG/0.8 ML DISP.SYRIN SQ ONE
[2023-10-20 12:25] LABS: BASO % 0.6 % (0-2.0); EOS % 0.5 % (0-4.5); HEMATOCRIT 30.4 % (35.4-49); LYMPH % 37.7 % (8-40); MCH 30.6 pg (25.7-33.7); MEAN CELL VOLUME 92.7 fl (80-96); MEAN PLT VOLUME 7.9 fl (7.5-11.1); MONO % 13.2 % (3.8-10.2); PLATELET COUNT 202 10^3/uL (134-434); RBC 3.28 M/mm3 (4.00-5.60); RDW 17.9 % (11.9-15.9); WHITE BLOOD COUNT 4.1 K/mm3 (4.0-10.0)
[2023-10-20 12:33] VITALS: RESP 20; TEMP 98.4
[2023-10-20 12:35] LABS: POTASSIUM 4.7 mmol/L (3.5-5.1)
[2023-10-20 12:37] LABS: CALCIUM 8.9 mg/dL (8.5-10.1)
[2023-10-20 12:38] LABS: ALBUMIN 2.4 g/dl (3.4-5.0); BLOOD UREA NITROGEN 16.2 mg/dL (7-18)
[2023-10-20] MEDS: SODIUM CHLORIDE 250 ML IV ONE (12:39)
[2023-10-20 12:43] LABS: BILIRUBIN,TOTAL 0.4 mg/dL (0.2-1); TOT PROT 6.6 g/dl (6.4-8.2)
[2023-10-20] MEDS: PALONOSETRON HCL 0.25 MG/5 ML VIAL IVPUSH ONE (13:08)
[2023-10-20] MEDS: DEXAMETHASONE SODIUM PHOSPHATE 10 MG in SODIUM CHLORIDE 50 ML IVPB ONE (13:08)
[2023-10-20] MEDS: FAMOTIDINE 20 MG/50 ML IVPB 20 MG/50 ML MG IVPB ONE (13:25)
[2023-10-20] MEDS: SODIUM CHLORIDE IVPB ONE ×2 (14:30→15:05)
[2023-10-20] MEDS: PACLITAXEL PROTEIN BOUND IVPB ONE (14:30)
[2023-10-20] MEDS: CARBOPLATIN IVPB ONE (15:05)
[2023-10-20 15:48] VITALS: BP 93/60; PULSE 111
[2023-10-20] MEDS: PORTA CATH FLUSH 10 ML IVPUSH PRN (15:48)
== END 2023-10-20 16:00 | disposition home or self-care (01) ==
LOC: JONCCHEMO 11:46 → J7W 11:48 → JONCCHEMO 16:00
PROVIDERS: ATTEND Internal Medicine Hematology & Oncology
DX: Z51.11 Encounter for antineoplastic chemotherapy (principal); C34.91 Malignant neoplasm of unspecified part of right bronchus or lung
CPT/HCPCS: 36415; 80053; 83735; 85025; 96367; 96375; 96413; 96417; J2469; J9264

== ENCOUNTER 2023-10-27 10:56 | Day surgery (SDC) | payer OTHER ==
[2023-10-27] MEDS: SODIUM CHLORIDE 250 ML IV ONE (11:45)
[2023-10-27 12:02] LABS: BASO % 0.7 % (0-2.0); EOS % 0.4 % (0-4.5); HEMATOCRIT 30.1 % (35.4-49); HEMOGLOBIN 9.9 GM/dL (11.7-16.9); LYMPH % 31.7 % (8-40); MCH 30.3 pg (25.7-33.7); MCHC 32.9 g/dl (32.0-35.9); MEAN CELL VOLUME 92.1 fl (80-96); MEAN PLT VOLUME 7.9 fl (7.5-11.1); MONO % 9.4 % (3.8-10.2); NEUT % 57.8 % (42.8-82.8); PLATELET COUNT 159 10^3/uL (134-434); RBC 3.26 M/mm3 (4.00-5.60); RDW 17.3 % (11.9-15.9); WHITE BLOOD COUNT 4.8 K/mm3 (4.0-10.0)
[2023-10-27 12:18] LABS: POTASSIUM 5.1 mmol/L (3.5-5.1)
[2023-10-27 12:20] LABS: CALCIUM 8.5 mg/dL (8.5-10.1)
[2023-10-27 12:21] LABS: ALBUMIN 2.5 g/dl (3.4-5.0); BLOOD UREA NITROGEN 14.9 mg/dL (7-18); MAGNESIUM 1.8 mg/dL (1.8-2.4)
[2023-10-27 12:24] LABS: CREATININE 0.9 mg/dL (0.55-1.3)
[2023-10-27 12:25] LABS: BILIRUBIN,TOTAL 0.5 mg/dL (0.2-1); TOT PROT 6.9 g/dl (6.4-8.2)
[2023-10-27] MEDS: FAMOTIDINE 20 MG/50 ML IVPB 20 MG/50 ML MG IVPB ONE (12:49)
[2023-10-27] MEDS: DEXAMETHASONE SODIUM PHOSPHATE 6 MG in SODIUM CHLORIDE 50 ML IVPB ONE (13:28)
[2023-10-27] MEDS: GRANISETRON HCL/PF 1 MG in SODIUM CHLORIDE 50 ML IVPB ONE (13:46)
[2023-10-27] MEDS: PACLITAXEL PROTEIN BOUND IVPB ONE (14:03)
[2023-10-27] MEDS: SODIUM CHLORIDE IVPB ONE (14:03)
[2023-10-27] MEDS: PORTA CATH FLUSH 10 ML IVPUSH PRN (14:35)
[2023-10-27 15:29] VITALS: TEMP 98.2
[2023-10-27 15:40] VITALS: BP 109/55; PULSE 91; RESP 18
== END 2023-10-27 14:45 | disposition home or self-care (01) ==
LOC: JONCCHEMO 10:56 → J7W 10:56 → JONCCHEMO 14:45
PROVIDERS: ATTEND Internal Medicine Hematology & Oncology
DX: Z51.11 Encounter for antineoplastic chemotherapy (principal); C34.91 Malignant neoplasm of unspecified part of right bronchus or lung
CPT/HCPCS: 36415; 80053; 83735; 85025; 96367; 96375; 96413; J9264

== ENCOUNTER 2023-11-03 11:48 | Day surgery (SDC) | payer OTHER ==
[2023-11-03] MEDS: SODIUM CHLORIDE 250 ML IV ONE (12:21)
[2023-11-03 12:28] LABS: BASO % 0.6 % (0-2.0); EOS % 0.2 % (0-4.5); HEMATOCRIT 26.7 % (35.4-49); HEMOGLOBIN 8.8 GM/dL (11.7-16.9); LYMPH % 33.3 % (8-40); MCH 30.4 pg (25.7-33.7); MEAN CELL VOLUME 92.1 fl (80-96); MEAN PLT VOLUME 7.8 fl (7.5-11.1); MONO % 10.6 % (3.8-10.2); NEUT % 55.3 % (42.8-82.8); PLATELET COUNT 82 10^3/uL (134-434); RDW 17.1 % (11.9-15.9); WHITE BLOOD COUNT 6.8 K/mm3 (4.0-10.0)
[2023-11-03 12:37] LABS: URINE APPEARANCE CLEAR; URINE BILIRUBIN NEGATIVE (NEGATIVE); URINE COLOR YELLOW; URINE GLUCOSE (UA) NEGATIVE (NEGATIVE); URINE KETONE TRACE (NEGATIVE); URINE LEUK ESTERASE NEGATIVE (NEGATIVE); URINE NITRITE NEGATIVE (NEGATIVE); URINE PROTEIN TRACE (NEGATIVE)
[2023-11-03 12:52] LABS: POTASSIUM 4.8 mmol/L (3.5-5.1)
[2023-11-03 12:58] LABS: BLOOD UREA NITROGEN 19.7 mg/dL (7-18)
[2023-11-03 12:59] LABS: ALBUMIN 2.6 g/dl (3.4-5.0); MAGNESIUM 1.9 mg/dL (1.8-2.4)
[2023-11-03 13:03] LABS: BILIRUBIN,TOTAL 0.5 mg/dL (0.2-1); TOT PROT 7.3 g/dl (6.4-8.2)
[2023-11-03] MEDS: FAMOTIDINE 20 MG/50 ML IVPB 20 MG/50 ML MG IVPB ONE (13:40)
[2023-11-03] MEDS: GRANISETRON HCL/PF 1 MG in SODIUM CHLORIDE 50 ML IVPB ONE (14:13)
[2023-11-03] MEDS: DEXAMETHASONE SODIUM PHOSPHATE 6 MG in SODIUM CHLORIDE 50 ML IVPB ONE (14:27)
[2023-11-03] MEDS: PACLITAXEL PROTEIN BOUND IVPB ONE (14:47)
[2023-11-03] MEDS: SODIUM CHLORIDE IVPB ONE (14:47)
[2023-11-03 18:55] VITALS: BP 107/56; PULSE 94; RESP 20; TEMP 97.9
[2023-11-03] MEDS ORDERED: PORTA CATH FLUSH 10 ML IVPUSH PRN (19:00)
== END 2023-11-03 15:30 | disposition home or self-care (01) ==
LOC: JONCCHEMO 11:48 → J7W 11:53 → JONCCHEMO 15:30
PROVIDERS: ATTEND Internal Medicine Hematology & Oncology
DX: Z51.11 Encounter for antineoplastic chemotherapy (principal); C34.91 Malignant neoplasm of unspecified part of right bronchus or lung
CPT/HCPCS: 36415; 80053; 81003; 82378; 82607; 83036; 83735; 84439; 84443; 85025; 87086; 96367; 96375; 96413; J9264

== ENCOUNTER 2023-11-10 11:23 | Day surgery (SDC) | payer OTHER ==
[~2023-11-10 11:23] MED LIST changes: -DEXAMETHASONE SODIUM PHOSPHATE 10 MG in SODIUM CHLORIDE 50 ML IVPB ONE; -FAMOTIDINE 20 MG/50 ML IVPB 20 MG/50 ML MG IVPB ONE; -PACLITAXEL PROTEIN BOUND IVPB ONE; -PALONOSETRON HCL 0.25 MG/5 ML VIAL IVPUSH ONE; -SODIUM CHLORIDE 250 ML IV ONE
[2023-11-10 12:16] LABS: BASO % 0.6 % (0-2.0); EOS % 0.2 % (0-4.5); HEMATOCRIT 25.2 % (35.4-49); HEMOGLOBIN 8.3 GM/dL (11.7-16.9); LYMPH % 28.1 % (8-40); MCH 30.8 pg (25.7-33.7); MEAN CELL VOLUME 93.5 fl (80-96); MEAN PLT VOLUME 7.8 fl (7.5-11.1); MONO % 10.1 % (3.8-10.2); PLATELET COUNT 87 10^3/uL (134-434); RDW 17.5 % (11.9-15.9); WHITE BLOOD COUNT 4.9 K/mm3 (4.0-10.0)
[2023-11-10] MEDS: SODIUM CHLORIDE 250 ML IV ONE (12:23)
[2023-11-10 13:19] LABS: CALCIUM 9.3 mg/dL (8.5-10.1)
[2023-11-10 13:20] LABS: ALBUMIN 2.4 g/dl (3.4-5.0); BLOOD UREA NITROGEN 17.2 mg/dL (7-18); MAGNESIUM 1.9 mg/dL (1.8-2.4)
[2023-11-10 13:23] LABS: CREATININE 1.1 mg/dL (0.55-1.3)
[2023-11-10 13:24] LABS: BILIRUBIN,TOTAL 0.4 mg/dL (0.2-1)
[2023-11-10 13:25] LABS: TOT PROT 6.9 g/dl (6.4-8.2)
[2023-11-10] MEDS: PALONOSETRON HCL 0.25 MG/5 ML VIAL IVPUSH ONE (13:55)
[2023-11-10] MEDS: DEXAMETHASONE SODIUM PHOSPHATE 10 MG in SODIUM CHLORIDE 50 ML IVPB ONE (14:00)
[2023-11-10] MEDS: FAMOTIDINE 20 MG/50 ML IVPB 20 MG/50 ML MG IVPB ONE (14:18)
[2023-11-10] MEDS: SODIUM CHLORIDE IVPB ONE (15:09)
[2023-11-10] MEDS: PACLITAXEL PROTEIN BOUND IVPB ONE (15:09)
[2023-11-10] MEDS: DEXTROSE 5% IVPB ONE (15:46)
[2023-11-10] MEDS: CARBOPLATIN IVPB ONE (15:46)
[2023-11-10] MEDS: WATER IVPB ONE (15:46)
[2023-11-10] MEDS: PORTA CATH FLUSH 10 ML IVPUSH PRN (16:30)
[2023-11-10 16:32] VITALS: RESP 20; TEMP 97.8
[2023-11-10 16:41] VITALS: BP 99/66; PULSE 121
== END 2023-11-10 16:35 | disposition home or self-care (01) ==
LOC: JONCCHEMO 11:23 → J7W 11:25 → JONCCHEMO 16:35
PROVIDERS: ATTEND Internal Medicine Hematology & Oncology
DX: Z51.11 Encounter for antineoplastic chemotherapy (principal); C34.91 Malignant neoplasm of unspecified part of right bronchus or lung
CPT/HCPCS: 36415; 80053; 83735; 85025; 96367; 96375; 96413; 96417; J2469; J9264

== ENCOUNTER 2023-11-20 07:39 | Day surgery (SDC) | payer OTHER ==
[2023-11-20] MEDS ORDERED: MAGNESIUM SULF 50% (8.12 MEQ/2 ML-1 GM VIAL) IVPB ONE (08:00)
[2023-11-20] MEDS ORDERED: FUROSEMIDE 40 MG/4 ML INJECTABLE VIAL IVPUSH ONE (11:00)
[2023-11-20] MEDS: FUROSEMIDE 40 MG/4 ML INJECTABLE VIAL IVPUSH ONE (13:43)
[2023-11-20] MEDS: MAGNESIUM 2GM/50ML STERILE WATER IVPB IVPB ONE (13:43)
[2023-11-20 17:51] LABS: BASO % 0.2 % (0-2.0); EOS % 0.2 % (0-4.5); HEMOGLOBIN 10.2 GM/dL (11.7-16.9); LYMPH % 29.4 % (8-40); MCH 29.3 pg (25.7-33.7); MCHC 32.8 g/dl (32.0-35.9); MEAN CELL VOLUME 89.3 fl (80-96); MEAN PLT VOLUME 7.7 fl (7.5-11.1); MONO % 16.5 % (3.8-10.2); NEUT % 53.7 % (42.8-82.8); PLATELET COUNT 167 10^3/uL (134-434); RBC 3.47 M/mm3 (4.00-5.60); RDW 20.9 % (11.9-15.9); WHITE BLOOD COUNT 4.5 K/mm3 (4.0-10.0)
[2023-11-20] MEDS: PORTA CATH FLUSH 10 ML IVPUSH PRN (18:35)
[2023-11-20 18:48] VITALS: BP 96/61; PULSE 128; RESP 24; TEMP 98.1
[2023-11-20 18:51] LABS: ANISOCYTOSIS 2+; OVALOCYTE 1+
[2023-11-20 18:52] LABS: PLATELET ESTIMATE ADEQUATE
== END 2023-11-20 18:45 | disposition home or self-care (01) ==
LOC: JONCBLOOD 07:39 → J7W 07:42 → JONCBLOOD 18:45
PROVIDERS: ATTEND Internal Medicine Hematology & Oncology
PROC: 30233N1 Transfusion of Nonautologous Red Blood Cells into Peripheral Vein, Percutaneous Approach (ICD-10-PCS; principal; 2023-11-20)
DX: C34.91 Malignant neoplasm of unspecified part of right bronchus or lung (principal); D61.1 Drug-induced aplastic anemia; D63.8 Anemia in other chronic diseases classified elsewhere
CPT/HCPCS: 36415; 36430; 85025; 86850; 86900; 86901; 86922; P9038; P9058

== ENCOUNTER 2023-12-03 12:57 | Day surgery (SDC) | payer OTHER ==
[~2023-12-03 12:57] MED LIST changes: -CARBOPLATIN IVPB ONE; +DEXAMETHASONE SODIUM PHOSPHATE 6 MG in SODIUM CHLORIDE 50 ML IVPB ONE; +FAMOTIDINE 20 MG/50 ML IVPB 20 MG/50 ML MG IVPB ONE; +GRANISETRON HCL/PF 1 MG in SODIUM CHLORIDE 50 ML IVPB ONE; +PACLITAXEL PROTEIN BOUND IVPB ONE; +SODIUM CHLORIDE 250 ML IV ONE
[2023-12-03] MEDS: PORTA CATH FLUSH 10 ML IVPUSH PRN (13:00)
[2023-12-03] MEDS: SODIUM CHLORIDE 1,000 ML IV ONE (13:00)
[2023-12-03] MEDS: MAGNESIUM SULFATE IN WATER 2 GM/50 ML IVPB IVPB ONE (13:37)
[2023-12-03 18:26] VITALS: BP 92/63; PULSE 112; RESP 22; TEMP 98.1
== END 2023-12-03 14:30 | disposition home or self-care (01) ==
LOC: JONCCHEMO 12:57 → J7W 12:58 → JONCCHEMO 14:30
PROVIDERS: ATTEND Internal Medicine Hematology & Oncology
PROC: 3E043GC Introduction of Other Therapeutic Substance into Central Vein, Percutaneous Approach (ICD-10-PCS; principal; 2023-12-03)
DX: C34.91 Malignant neoplasm of unspecified part of right bronchus or lung (principal); D61.1 Drug-induced aplastic anemia; D63.8 Anemia in other chronic diseases classified elsewhere; Z76.89 Persons encountering health services in other specified circumstances
CPT/HCPCS: 96365

== ENCOUNTER 2023-12-20 06:31 | Emergency (ER) | payer OTHER ==
[2023-12-20 06:53] VITALS: BMI 18.0
[2023-12-20 08:52] LABS: BASO % 0.2 % (0-2.0); HEMATOCRIT 27.9 % (35.4-49); HEMOGLOBIN 8.9 GM/dL (11.7-16.9); MCH 29.6 pg (25.7-33.7); MCHC 32.1 g/dl (32.0-35.9); MEAN CELL VOLUME 92.1 fl (80-96); MEAN PLT VOLUME 8.1 fl (7.5-11.1); MONO % 8.8 % (3.8-10.2); PLATELET COUNT 161 10^3/uL (134-434); RBC 3.03 M/mm3 (4.00-5.60); RDW 18.1 % (11.9-15.9); WHITE BLOOD COUNT 7.3 K/mm3 (4.0-10.0)
[2023-12-20 08:57] LABS: INR 1.21 (0.83-1.09); PROTHROMBIN TIME (PATIENT) 13.6 SEC (9.7-13.0)
[2023-12-20 08:59] LABS: ACTIVATED PTT 28.1 SECONDS (25.2-36.5)
[2023-12-20 09:04] LABS: VENOUS BASE EXCESS 5.7 mmol/L (-2-2); VENOUS O2 SATURATION 27.4 % (70-80); VENOUS PH 7.293 (7.310-7.410)
[2023-12-20 09:07] LABS: VENOUS PCO2 70.5 mmHg (38-52)
[2023-12-20 09:07] LABS: POTASSIUM 4.8 mmol/L (3.5-5.1)
[2023-12-20 09:10] LABS: CALCIUM 9.7 mg/dL (8.5-10.1)
[2023-12-20 09:11] LABS: ALBUMIN 2.2 g/dl (3.4-5.0); BLOOD UREA NITROGEN 39.5 mg/dL (7-18); MAGNESIUM 1.9 mg/dL (1.8-2.4)
[2023-12-20 09:14] LABS: CREATININE 1.3 mg/dL (0.55-1.3); PHOSPHOROUS 3.3 mg/dL (2.5-4.9)
[2023-12-20 09:15] LABS: BILIRUBIN,TOTAL 0.3 mg/dL (0.2-1); TOT PROT 7.4 g/dl (6.4-8.2)
[2023-12-20 11:08] VITALS: TEMP 97.5
[2023-12-20] MEDS ORDERED: ACETAMINOPHEN 500 MG TABLET (FP) ONE (12:42)
[2023-12-20] MEDS: ACETAMINOPHEN 500 MG TABLET (FP) PO ONE (12:57)
[2023-12-20] MEDS: SODIUM CHLORIDE 0.9% 500 ML INFUS.BAG IV ONE ×3 (13:22→14:12)
[2023-12-20 13:54] VITALS: BP 98/71; PULSE 114; RESP 20
== END 2023-12-20 14:28 | disposition home or self-care (01) ==
LOC: JER 06:31
DX: C34.91 Malignant neoplasm of unspecified part of right bronchus or lung (principal); J91.0 Malignant pleural effusion; R06.02 Shortness of breath; R00.0 Tachycardia, unspecified; Z20.822 Contact with and (suspected) exposure to COVID-19
CPT/HCPCS: 0241U-QW; 36415; 71045-TC-FY; 80053; 82803; 83735; 84100; 85025; 85610; 85730; 93005; 93010; 99285-25